=== PATIENT | female | born 1985 | race African-American/Black ===

== ENCOUNTER 2017-08-30 14:41 | Emergency (ER) | payer BC ==
[2017-08-30 19:57] LABS: ADD MAN DIFF? NO
[2017-08-30] MEDS: HYDROCODONE/APAP (10/325) TAB PO (19:57)
[2017-08-30 20:08] LABS: WHITE BLOOD COUNT 5.6 10^3/ul (4.8-10.8)
[2017-08-30 20:08] LABS: BASOPHILS % 0.4 % (0.0-2.0); EOSINOPHILS # 0.7 10^3/ul (0.0-0.5); EOSINOPHILS % 12.4 % (0.0-7.0); HEMATOCRIT 27.7 % (37.0-47.0); HEMOGLOBIN 8.8 g/dl (12.0-16.0); LYMPHOCYTES # 0.7 10^3/ul (0.8-2.9); LYMPHOCYTES % 13.3 % (15.0-51.0); MEAN CORPUSCULAR HGB CONC 31.8 g/dl (32.0-37.0); MEAN CORPUSCULAR VOLUME 97.5 fl (82.0-101.0); MONOCYTE # 0.8 10^3/ul (0.3-0.9); MONOCYTES % 14.4 % (0.0-11.0); NEUTROPHIL # 3.3 10^3/ul (1.6-7.5); PLATELET COUNT 126 10^3/UL (140-415); RED BLOOD COUNT 2.84 10^6/ul (4.20-5.40); RED CELL DISTRIBUTION WIDTH 15.5 % (11.5-14.5)
[2017-08-30 20:21] LABS: INR 0.99; PARTIAL THROMBOPLASTIN TIME 33.4 Sec (25.0-35.0); PROTIME 13.2 Sec (11.9-14.9)
[2017-08-30 20:25] LABS: ANION GAP 22 (8-16); BLOOD UREA NITROGEN 60 mg/dl (7-20); CALCIUM 9.1 mg/dl (8.4-10.2); CARBON DIOXIDE 23 mmol/L (21-31); CHLORIDE 103 mmol/L (97-110); CREATININE 9.69 mg/dl (0.44-1.00); GLUCOSE 97 mg/dl (70-220); SODIUM 143 mmol/L (135-144)
[2017-08-30] MEDS ORDERED: HYDROCODONE/APAP (10/325) TAB PO (20:30)
== END 2017-08-30 20:45 | disposition left against medical advice (07) ==
LOC: E/R 20:45
DX: N18.6 End stage renal disease (principal); I12.0 Hypertensive chronic kidney disease with stage 5 chronic kidney disease or end stage renal disease; I82.503 Chronic embolism and thrombosis of unspecified deep veins of lower extremity, bilateral; J45.909 Unspecified asthma, uncomplicated; I50.9 Heart failure, unspecified; Z76.5 Malingerer [conscious simulation]; Z87.891 Personal history of nicotine dependence; Z79.82 Long term (current) use of aspirin
CPT/HCPCS: 71045; 80048; 85025; 85610; 85730; 93005; 99285-25

== ENCOUNTER 2017-09-01 17:43 | Inpatient (IN) | payer BC ==
[2017-09-01 19:57] LABS: ADD MAN DIFF? NO
[2017-09-01 20:02] LABS: BASOPHILS % 0.4 % (0.0-2.0); EOSINOPHILS # 0.6 10^3/ul (0.0-0.5); EOSINOPHILS % 11.3 % (0.0-7.0); HEMATOCRIT 23.9 % (37.0-47.0); HEMOGLOBIN 7.6 g/dl (12.0-16.0); LYMPHOCYTES % 18.8 % (15.0-51.0); MEAN CORPUSCULAR HEMOGLOBIN 30.8 pg (29.0-33.0); MEAN CORPUSCULAR HGB CONC 31.8 g/dl (32.0-37.0); MEAN CORPUSCULAR VOLUME 96.8 fl (82.0-101.0); MEAN PLATELET VOLUME 10.6 fl (7.4-10.4); MONOCYTE # 0.7 10^3/ul (0.3-0.9); MONOCYTES % 12.8 % (0.0-11.0); NEUTROPHIL # 2.9 10^3/ul (1.6-7.5); NEUTROPHILS % 56.3 % (39.0-77.0); PLATELET COUNT 103 10^3/UL (140-415); RED BLOOD COUNT 2.47 10^6/ul (4.20-5.40); RED CELL DISTRIBUTION WIDTH 16.3 % (11.5-14.5)
[2017-09-01 20:02] LABS: WHITE BLOOD COUNT 5.2 10^3/ul (4.8-10.8)
[2017-09-01 20:16] LABS: INR 0.97
[2017-09-01 20:17] LABS: PARTIAL THROMBOPLASTIN TIME 42.3 Sec (25.0-35.0)
[2017-09-01 20:18] LABS: ALANINE AMINOTRANSFERASE 20 IU/L (13-69); ALBUMIN 3.7 g/dl (3.3-4.9); ALBUMIN/GLOBULIN RATIO 1.19; ALKALINE PHOSPHATASE 55 IU/L (42-121); ANION GAP 21 (8-16); ASPARTATE AMINO TRANSFERASE 17 IU/L (15-46); BLOOD UREA NITROGEN 73 mg/dl (7-20); CARBON DIOXIDE 22 mmol/L (21-31); CHLORIDE 105 mmol/L (97-110); GLUCOSE 101 mg/dl (70-220); LIPASE 74 U/L (23-300); POTASSIUM 5.5 mmol/L (3.5-5.1); SODIUM 142 mmol/L (135-144); TOTAL PROTEIN 6.8 g/dl (6.1-8.1)
[2017-09-01] MEDS: ENOXAPARIN 100 MG/ML SYG SC (21:52)
[2017-09-01] MEDS: ACETAMINOPHEN 325 MG TAB PO (21:52)
[2017-09-01] MEDS: ONDANSETRON 4 MG INJ IV (21:53)
[2017-09-01] MEDS: hydrALAzine 20 MG INJ IV (22:09)
[2017-09-01] MEDS: KETOROLAC 30 MG INJ IV (22:51)
[2017-09-01] MEDS: morphine 4 MG/ML VIAL IV (23:47)
[2017-09-02] MEDS ORDERED: ALBUTEROL/IPRATROPIUM (NEB) 3 ML AMP HHN (02:00)
[2017-09-02] MEDS ORDERED: NACL 0.9% 3 ML SYG IV (02:00)
[2017-09-02] MEDS ORDERED: TOPIRAMATE 200 MG PO (02:00)
[2017-09-02 03:40] LABS: CREATINE KINASE 88 IU/L (23-200)
[2017-09-02 03:53] LABS: CK INDEX 0.4; CK-MB 0.32 ng/ml (0.0-2.4)
[2017-09-02 04:15] LABS: TROPONIN-I < 0.012 ng/ml (0.00-0.12)
[2017-09-02] MEDS: NA POLYST SULFON 15 GM/60 ML BTL PO (06:49)
[2017-09-02] MEDS: ACETAMINOPHEN 325 MG TAB PO (06:50)
[2017-09-02] MEDS: morphine 2 MG INJ IV (07:37)
[2017-09-02 08:42] LABS: ADD MAN DIFF? NO
[2017-09-02 08:49] LABS: ABNORMAL IP MESSAGE 1; BASOPHILS % 0.4 % (0.0-2.0); EOSINOPHILS # 0.5 10^3/ul (0.0-0.5); EOSINOPHILS % 10.4 % (0.0-7.0); HEMATOCRIT 22.4 % (37.0-47.0); HEMOGLOBIN 7.1 g/dl (12.0-16.0); LYMPHOCYTES # 1.3 10^3/ul (0.8-2.9); LYMPHOCYTES % 28.4 % (15.0-51.0); MEAN CORPUSCULAR HGB CONC 31.7 g/dl (32.0-37.0); MEAN CORPUSCULAR VOLUME 97.8 fl (82.0-101.0); MEAN PLATELET VOLUME 11.1 fl (7.4-10.4); MONOCYTE # 0.5 10^3/ul (0.3-0.9); MONOCYTES % 11.3 % (0.0-11.0); NEUTROPHIL # 2.2 10^3/ul (1.6-7.5); NEUTROPHILS % 49.3 % (39.0-77.0); PLATELET COUNT 96 10^3/UL (140-415); RED BLOOD COUNT 2.29 10^6/ul (4.20-5.40); RED CELL DISTRIBUTION WIDTH 16.4 % (11.5-14.5)
[2017-09-02 08:49] LABS: WHITE BLOOD COUNT 4.5 10^3/ul (4.8-10.8)
[2017-09-02 08:51] LABS: POSITIVE DIFF @See below
[2017-09-02 09:17] LABS: CREATINE KINASE 79 IU/L (23-200)
[2017-09-02 09:18] LABS: ALANINE AMINOTRANSFERASE 20 IU/L (13-69); ALBUMIN 3.4 g/dl (3.3-4.9); ALBUMIN/GLOBULIN RATIO 1.21; ALKALINE PHOSPHATASE 67 IU/L (42-121); ANION GAP 21 (8-16); ASPARTATE AMINO TRANSFERASE 19 IU/L (15-46); BLOOD UREA NITROGEN 78 mg/dl (7-20); CALCIUM 7.8 mg/dl (8.4-10.2); CARBON DIOXIDE 19 mmol/L (21-31); CHLORIDE 108 mmol/L (97-110); CREATININE 10.93 mg/dl (0.44-1.00); GLUCOSE 83 mg/dl (70-220); MAGNESIUM 1.6 mg/dl (1.7-2.5); POTASSIUM 5.3 mmol/L (3.5-5.1); SODIUM 143 mmol/L (135-144); TOTAL PROTEIN 6.2 g/dl (6.1-8.1)
[2017-09-02 09:29] LABS: CK INDEX 0.4; CK-MB 0.31 ng/ml (0.0-2.4); TROPONIN-I 0.013 ng/ml (0.00-0.12)
[2017-09-02] MEDS: TOPIRAMATE 100 MG TAB PO ×2 (09:37→21:30)
[2017-09-02] MEDS: GABAPENTIN 100 MG CAP PO ×3 (09:37→20:03)
[2017-09-02] MEDS: CITALOPRAM 20 MG TAB PO (09:37)
[2017-09-02] MEDS: ASPIRIN (EC) 81 MG TAB PO (09:37)
[2017-09-02 11:07] LABS: IRON 33 ug/dl (35-150)
[2017-09-02 11:16] LABS: % IRON SATURATION 17 % SAT (22-52); TOTAL IRON BINDING CAPACITY 189 ug/dl (241-421)
[2017-09-02] MEDS ORDERED: HEPARIN 1000 UNITS/ML 10 ML INJ IV ×2 (13:00)
[2017-09-02 14:44] LABS: ADD MAN DIFF? NO
[2017-09-02 14:48] LABS: BASOPHILS % 0.3 % (0.0-2.0); EOSINOPHILS # 0.4 10^3/ul (0.0-0.5); HEMOGLOBIN 7.6 g/dl (12.0-16.0); LYMPHOCYTES # 0.8 10^3/ul (0.8-2.9); LYMPHOCYTES % 19.8 % (15.0-51.0); MEAN CORPUSCULAR HEMOGLOBIN 30.8 pg (29.0-33.0); MEAN CORPUSCULAR HGB CONC 31.7 g/dl (32.0-37.0); MEAN CORPUSCULAR VOLUME 97.2 fl (82.0-101.0); MEAN PLATELET VOLUME 10.6 fl (7.4-10.4); MONOCYTE # 0.5 10^3/ul (0.3-0.9); MONOCYTES % 11.3 % (0.0-11.0); NEUTROPHIL # 2.3 10^3/ul (1.6-7.5); NEUTROPHILS % 57.3 % (39.0-77.0); PLATELET COUNT 107 10^3/UL (140-415); RED BLOOD COUNT 2.47 10^6/ul (4.20-5.40); RED CELL DISTRIBUTION WIDTH 16.6 % (11.5-14.5)
[2017-09-02 15:03] LABS: INR 1.04; PROTIME 13.7 Sec (11.9-14.9); PT RATIO 1.1
[2017-09-02 15:04] LABS: PARTIAL THROMBOPLASTIN TIME 40.4 Sec (25.0-35.0)
[2017-09-02] MEDS: HEPARIN 1000 UNITS/ML 10 ML INJ IV (15:37)
[2017-09-02] MEDS: HEPARIN 25000 UNITS/250 ML 250 ML IV (15:38)
[2017-09-02] MEDS ORDERED: WARFARIN 5 MG TAB PO (17:00)
[2017-09-02] MEDS: LORAZEPAM 0.5 MG TAB PO ×2 (17:44→22:34)
[2017-09-02] MEDS: HYDROCODONE/APAP (5/325) TAB PO (22:34)
[2017-09-02 23:17] LABS: PARTIAL THROMBOPLASTIN TIME > 180.0 Sec (25.0-35.0)
[2017-09-03] MEDS: hydrALAzine 20 MG INJ IV ×4 (00:10→21:26)
[2017-09-03 02:22] LABS: PARTIAL THROMBOPLASTIN TIME 71.9 Sec (25.0-35.0)
[2017-09-03 07:39] LABS: ADD MAN DIFF? NO
[2017-09-03 07:51] LABS: WHITE BLOOD COUNT 5.1 10^3/ul (4.8-10.8)
[2017-09-03 07:51] LABS: ABNORMAL IP MESSAGE 1; BASOPHILS % 0.2 % (0.0-2.0); EOSINOPHILS # 0.6 10^3/ul (0.0-0.5); EOSINOPHILS % 11.8 % (0.0-7.0); HEMOGLOBIN 7.5 g/dl (12.0-16.0); LYMPHOCYTES # 1.1 10^3/ul (0.8-2.9); MEAN CORPUSCULAR HEMOGLOBIN 30.9 pg (29.0-33.0); MEAN CORPUSCULAR HGB CONC 32.6 g/dl (32.0-37.0); MEAN CORPUSCULAR VOLUME 94.7 fl (82.0-101.0); MEAN PLATELET VOLUME 11.7 fl (7.4-10.4); MONOCYTE # 0.4 10^3/ul (0.3-0.9); MONOCYTES % 8.7 % (0.0-11.0); NEUTROPHIL # 2.9 10^3/ul (1.6-7.5); NEUTROPHILS % 57.1 % (39.0-77.0); NUCLEATED RED BLOOD CELLS% 0.4 /100WBC (0.0-0.0); RED BLOOD COUNT 2.43 10^6/ul (4.20-5.40); RED CELL DISTRIBUTION WIDTH 16.7 % (11.5-14.5)
[2017-09-03 07:59] LABS: POSITIVE DIFF @See below
[2017-09-03 08:03] LABS: PLATELET COUNT 110 10^3/UL (140-415)
[2017-09-03] MEDS: CITALOPRAM 20 MG TAB PO (08:04)
[2017-09-03] MEDS: GABAPENTIN 100 MG CAP PO ×3 (08:04→20:04)
[2017-09-03] MEDS: ASPIRIN (EC) 81 MG TAB PO (08:04)
[2017-09-03] MEDS: TOPIRAMATE 100 MG TAB PO ×2 (08:04→20:03)
[2017-09-03 08:10] LABS: ANION GAP 20 (8-16); BLOOD UREA NITROGEN 83 mg/dl (7-20); CALCIUM 7.8 mg/dl (8.4-10.2); CARBON DIOXIDE 19 mmol/L (21-31); CHLORIDE 107 mmol/L (97-110); CREATININE 11.25 mg/dl (0.44-1.00); GLUCOSE 107 mg/dl (70-220); MAGNESIUM 1.6 mg/dl (1.7-2.5); PHOSPHORUS 6.4 mg/dl (2.5-4.9); POTASSIUM 4.5 mmol/L (3.5-5.1); SODIUM 141 mmol/L (135-144)
[2017-09-03] MEDS: HEPARIN 25000 UNITS/250 ML 250 ML IV (08:17)
[2017-09-03] MEDS: HYDROCODONE/APAP (5/325) TAB PO ×2 (08:38→13:44)
[2017-09-03 08:49] LABS: PARTIAL THROMBOPLASTIN TIME 85.9 Sec (25.0-35.0)
[2017-09-03 15:12] LABS: PARTIAL THROMBOPLASTIN TIME 176.7 Sec (25.0-35.0)
[2017-09-03] MEDS: LIDOCAINE 5% PATCH TD (19:27)
[2017-09-03 22:00] LABS: PARTIAL THROMBOPLASTIN TIME 98.3 Sec (25.0-35.0)
[2017-09-04] MEDS: HEPARIN 25000 UNITS/250 ML 250 ML IV ×2 (04:10→22:48)
[2017-09-04] MEDS: HYDROCODONE/APAP (5/325) TAB PO ×2 (05:13→21:47)
[2017-09-04 06:15] LABS: ADD MAN DIFF? NO
[2017-09-04 06:19] LABS: WHITE BLOOD COUNT 5.3 10^3/ul (4.8-10.8)
[2017-09-04 06:19] LABS: BASOPHILS % 0.4 % (0.0-2.0); EOSINOPHILS # 0.9 10^3/ul (0.0-0.5); EOSINOPHILS % 16.4 % (0.0-7.0); HEMATOCRIT 24.7 % (37.0-47.0); LYMPHOCYTES # 1.4 10^3/ul (0.8-2.9); LYMPHOCYTES % 26.4 % (15.0-51.0); MEAN CORPUSCULAR HGB CONC 32.4 g/dl (32.0-37.0); MEAN CORPUSCULAR VOLUME 95.7 fl (82.0-101.0); MEAN PLATELET VOLUME 10.8 fl (7.4-10.4); MONOCYTE # 0.5 10^3/ul (0.3-0.9); MONOCYTES % 9.4 % (0.0-11.0); NEUTROPHIL # 2.5 10^3/ul (1.6-7.5); NEUTROPHILS % 47.2 % (39.0-77.0); PLATELET COUNT 146 10^3/UL (140-415); RED BLOOD COUNT 2.58 10^6/ul (4.20-5.40); RED CELL DISTRIBUTION WIDTH 16.8 % (11.5-14.5)
[2017-09-04 06:56] LABS: ALANINE AMINOTRANSFERASE 20 IU/L (13-69); ALBUMIN/GLOBULIN RATIO 1.21; ALKALINE PHOSPHATASE 60 IU/L (42-121); ANION GAP 23 (8-16); ASPARTATE AMINO TRANSFERASE 16 IU/L (15-46); BLOOD UREA NITROGEN 76 mg/dl (7-20); CARBON DIOXIDE 21 mmol/L (21-31); CHLORIDE 106 mmol/L (97-110); CREATININE 11.18 mg/dl (0.44-1.00); GLUCOSE 98 mg/dl (70-220); POTASSIUM 4.6 mmol/L (3.5-5.1); SODIUM 145 mmol/L (135-144); TOTAL PROTEIN 7.3 g/dl (6.1-8.1)
[2017-09-04 07:23] LABS: PARTIAL THROMBOPLASTIN TIME 74.6 Sec (25.0-35.0)
[2017-09-04] MEDS: ASPIRIN (EC) 81 MG TAB PO (08:49)
[2017-09-04] MEDS: CITALOPRAM 20 MG TAB PO (08:49)
[2017-09-04] MEDS: TOPIRAMATE 100 MG TAB PO ×2 (08:50→20:03)
[2017-09-04] MEDS: GABAPENTIN 100 MG CAP PO ×3 (08:50→20:03)
[2017-09-04] MEDS: LIDOCAINE 5% PATCH TD (08:51)
[2017-09-04] MEDS: hydrALAzine 20 MG INJ IV ×2 (15:04→23:06)
[2017-09-04] MEDS: NITROGLYCERIN (SL) 0.4 MG TAB SL ×2 (18:50→19:26)
[2017-09-05] MEDS: ENALAPRILAT 1.25 MG INJ IV (01:25)
[2017-09-05 06:44] LABS: PARTIAL THROMBOPLASTIN TIME 81.8 Sec (25.0-35.0)
[2017-09-05] MEDS: TOPIRAMATE 100 MG TAB PO ×2 (08:51→20:26)
[2017-09-05] MEDS: CITALOPRAM 20 MG TAB PO (08:52)
[2017-09-05] MEDS: ASPIRIN (EC) 81 MG TAB PO (08:52)
[2017-09-05] MEDS: GABAPENTIN 100 MG CAP PO ×3 (08:52→20:26)
[2017-09-05] MEDS: LIDOCAINE 5% PATCH TD (08:53)
[2017-09-05] MEDS: hydrALAzine 20 MG INJ IV ×2 (15:01→20:27)
[2017-09-05] MEDS: HEPARIN 25000 UNITS/250 ML 250 ML IV (18:37)
[2017-09-06] MEDS: hydrALAzine 20 MG INJ IV (01:42)
[2017-09-06 06:36] LABS: ALANINE AMINOTRANSFERASE 18 IU/L (13-69); ALBUMIN 3.7 g/dl (3.3-4.9); ALBUMIN/GLOBULIN RATIO 1.05; ALKALINE PHOSPHATASE 46 IU/L (42-121); ANION GAP 17 (8-16); ASPARTATE AMINO TRANSFERASE 16 IU/L (15-46); BLOOD UREA NITROGEN 65 mg/dl (7-20); CALCIUM 8.8 mg/dl (8.4-10.2); CARBON DIOXIDE 24 mmol/L (21-31); CHLORIDE 104 mmol/L (97-110); CREATININE 11.29 mg/dl (0.44-1.00); GLUCOSE 91 mg/dl (70-220); POTASSIUM 4.3 mmol/L (3.5-5.1); SODIUM 141 mmol/L (135-144); TOTAL PROTEIN 7.2 g/dl (6.1-8.1)
[2017-09-06 06:58] LABS: PARTIAL THROMBOPLASTIN TIME 95.8 Sec (25.0-35.0)
[2017-09-06] MEDS: TOPIRAMATE 100 MG TAB PO (08:13)
[2017-09-06] MEDS: GABAPENTIN 100 MG CAP PO ×2 (08:13→12:34)
[2017-09-06] MEDS: CITALOPRAM 20 MG TAB PO (08:14)
[2017-09-06] MEDS: ASPIRIN (EC) 81 MG TAB PO (08:14)
[2017-09-06] MEDS: LIDOCAINE 5% PATCH TD (08:16)
[2017-09-06] MEDS ORDERED: NALOXONE (0.4 MG/ML) INJ IV (14:00)
[2017-09-06] MEDS: HEPARIN 25000 UNITS/250 ML 250 ML IV (16:40)
[2017-09-06] MEDS ORDERED: APIXABAN 5 MG TABLET PO (21:00)
== END 2017-09-06 19:15 | disposition left against medical advice (07) | DRG 314 ==
LOC: TEL 20:36 → MS2 09-03 16:30 → E/R 17:43
PROC: 06PYX3Z Removal of Infusion Device from Lower Vein, External Approach (ICD-10-PCS; principal; 2017-09-06)
DX: T82.868A Thrombosis due to vascular prosthetic devices, implants and grafts, initial encounter (principal); N18.6 End stage renal disease; I13.2 Hypertensive heart and chronic kidney disease with heart failure and with stage 5 chronic kidney disease, or end stage renal disease; I82.411 Acute embolism and thrombosis of right femoral vein; T82.41XA Breakdown (mechanical) of vascular dialysis catheter, initial encounter; E11.22 Type 2 diabetes mellitus with diabetic chronic kidney disease; I16.0 Hypertensive urgency; E87.5 Hyperkalemia; D63.1 Anemia in chronic kidney disease; Z91.14 Patient's other noncompliance with medication regimen; I50.9 Heart failure, unspecified; I73.9 Peripheral vascular disease, unspecified; E78.5 Hyperlipidemia, unspecified; Z79.01 Long term (current) use of anticoagulants; E66.9 Obesity, unspecified; Z68.38 Body mass index [BMI] 38.0-38.9, adult; Z79.82 Long term (current) use of aspirin; J45.909 Unspecified asthma, uncomplicated; Z82.49 Family history of ischemic heart disease and other diseases of the circulatory system; Z99.2 Dependence on renal dialysis; Z83.3 Family history of diabetes mellitus; E83.42 Hypomagnesemia; Z91.15 Patient's noncompliance with renal dialysis; Y84.8 Other medical procedures as the cause of abnormal reaction of the patient, or of later complication, without mention of misadventure at the time of the procedure
CPT/HCPCS: 36415; 80048; 80053; 82550; 82553; 82728; 83540; 83690; 83735; 83890; 84100; 84484; 85025; 85610; 85730; 88300; 90945; 93005; 93971; 96372; 96374; 96375; 97116; 97162; 97530; 99285-25

== ENCOUNTER 2017-11-28 23:04 | Inpatient (IN) | payer BC ==
[2017-11-29] MEDS: NITROGLYCERIN 50 MG/D5W (PMX) 250 ML IV (00:30)
[2017-11-29 00:45] LABS: ADD MAN DIFF? NO
[2017-11-29 00:59] LABS: ABNORMAL IP MESSAGE 1; BASOPHILS % 0.9 % (0.0-2.0); EOSINOPHILS # 0.4 10^3/ul (0.0-0.5); EOSINOPHILS % 8.7 % (0.0-7.0); HEMATOCRIT 25.5 % (37.0-47.0); HEMOGLOBIN 8.3 g/dl (12.0-16.0); LYMPHOCYTES # 0.9 10^3/ul (0.8-2.9); LYMPHOCYTES % 20.4 % (15.0-51.0); MEAN CORPUSCULAR HGB CONC 32.5 g/dl (32.0-37.0); MEAN CORPUSCULAR VOLUME 95.1 fl (82.0-101.0); MEAN PLATELET VOLUME 11.9 fl (7.4-10.4); MONOCYTE # 0.4 10^3/ul (0.3-0.9); MONOCYTES % 9.2 % (0.0-11.0); NEUTROPHIL # 2.6 10^3/ul (1.6-7.5); NEUTROPHILS % 60.6 % (39.0-77.0); RED BLOOD COUNT 2.68 10^6/ul (4.20-5.40); RED CELL DISTRIBUTION WIDTH 14.7 % (11.5-14.5)
[2017-11-29 00:59] LABS: WHITE BLOOD COUNT 4.3 10^3/ul (4.8-10.8)
[2017-11-29] MEDS: ONDANSETRON 4 MG INJ IV (01:01)
[2017-11-29] MEDS: morphine 4 MG/ML VIAL IV (01:02)
[2017-11-29 01:05] LABS: PROTIME 13.3 Sec (11.9-14.9)
[2017-11-29 01:06] LABS: PARTIAL THROMBOPLASTIN TIME 23.3 Sec (25.0-35.0)
[2017-11-29 01:16] LABS: ALANINE AMINOTRANSFERASE 26 IU/L (13-69); ALBUMIN/GLOBULIN RATIO 1.37; ALKALINE PHOSPHATASE 54 IU/L (42-121); ANION GAP 26 (8-16); ASPARTATE AMINO TRANSFERASE 33 IU/L (15-46); CARBON DIOXIDE 15 mmol/L (21-31); CHLORIDE 111 mmol/L (97-110); GLUCOSE 90 mg/dl (70-220); POTASSIUM 4.5 mmol/L (3.5-5.1); SODIUM 147 mmol/L (135-144); TOTAL PROTEIN 6.9 g/dl (6.1-8.1)
[2017-11-29 01:28] LABS: PLATELET COUNT 74 10^3/UL (140-415); POSITIVE DIFF @See below
[2017-11-29 01:33] LABS: BLOOD UREA NITROGEN 135 mg/dl (7-20); CREATININE 15.87 mg/dl (0.44-1.00)
[2017-11-29] MEDS: HYDROmorphONE 0.5 MG/0.5 ML SYG IV (02:01)
[2017-11-29] MEDS: niCARdipine-NS 0.1MG/ML DRIP 200 ML IV ×4 (02:14→07:56)
[2017-11-29] MEDS ORDERED: ONDANSETRON 4 MG INJ IV (03:00)
[2017-11-29] MEDS ORDERED: ACETAMINOPHEN 650MG/20.3ML CUP PO (03:00)
[2017-11-29 03:24] LABS: ETHANOL < 10.0 mg/dl
[2017-11-29] MEDS: DIPHENHYDRAMINE 50 MG INJ IV (04:22)
[2017-11-29] MEDS ORDERED: ACETAMINOPHEN 325 MG TAB PO (05:30)
[2017-11-29 05:32] LABS: ADD MAN DIFF? NO
[2017-11-29] MEDS: morphine 2 MG INJ IV (05:34)
[2017-11-29] MEDS: PANTOPRAZOLE (EC) 40 MG TAB PO (05:35)
[2017-11-29 05:43] LABS: BASOPHIL # 0.1 10^3/ul (0.0-0.1); BASOPHILS % 1.2 % (0.0-2.0); EOSINOPHILS # 0.6 10^3/ul (0.0-0.5); EOSINOPHILS % 10.3 % (0.0-7.0); HEMATOCRIT 24.9 % (37.0-47.0); HEMOGLOBIN 8.4 g/dl (12.0-16.0); LYMPHOCYTES # 1.4 10^3/ul (0.8-2.9); LYMPHOCYTES % 22.4 % (15.0-51.0); MEAN CORPUSCULAR HEMOGLOBIN 31.1 pg (29.0-33.0); MEAN CORPUSCULAR HGB CONC 33.7 g/dl (32.0-37.0); MEAN CORPUSCULAR VOLUME 92.2 fl (82.0-101.0); MEAN PLATELET VOLUME 11.4 fl (7.4-10.4); MONOCYTE # 0.7 10^3/ul (0.3-0.9); MONOCYTES % 11.5 % (0.0-11.0); NEUTROPHIL # 3.3 10^3/ul (1.6-7.5); NEUTROPHILS % 54.4 % (39.0-77.0); PLATELET COUNT 106 10^3/UL (140-415); RED CELL DISTRIBUTION WIDTH 14.6 % (11.5-14.5)
[2017-11-29 06:04] LABS: ANION GAP 23 (8-16); CARBON DIOXIDE 15 mmol/L (21-31); CHLORIDE 111 mmol/L (97-110); GLUCOSE 112 mg/dl (70-220); POTASSIUM 4.2 mmol/L (3.5-5.1); SODIUM 145 mmol/L (135-144)
[2017-11-29 06:14] LABS: BLOOD UREA NITROGEN 131 mg/dl (7-20); CREATININE 15.65 mg/dl (0.44-1.00)
[2017-11-29] MEDS ORDERED: APIXABAN 5 MG TABLET PO (09:00)
[2017-11-29] MEDS ORDERED: CITALOPRAM 20 MG TAB PO (09:00)
[2017-11-29] MEDS ORDERED: GABAPENTIN 100 MG CAP PO (09:00)
[2017-11-29] MEDS ORDERED: TOPIRAMATE 100 MG TAB PO (09:00)
[2017-11-29] MEDS ORDERED: ASPIRIN (EC) 81 MG TAB PO (09:00)
== END 2017-11-29 09:00 | disposition left against medical advice (07) | DRG 304 ==
LOC: ICU 11-29 02:36 → E/R 23:04
DX: I16.0 Hypertensive urgency (principal); N18.6 End stage renal disease; I12.0 Hypertensive chronic kidney disease with stage 5 chronic kidney disease or end stage renal disease; D63.1 Anemia in chronic kidney disease; Z99.2 Dependence on renal dialysis; Z91.15 Patient's noncompliance with renal dialysis; Z86.718 Personal history of other venous thrombosis and embolism; Z59.0 Homelessness
CPT/HCPCS: 71045; 80048; 80053; 80306; 84484; 85025; 85610; 85730; 87081; 93005; 93970; 96365; 96366; 96368; 96375; 99291-25

== ENCOUNTER 2018-01-16 08:09 | Inpatient (IN) | payer BC ==
[2018-01-16 09:39] LABS: ADD MAN DIFF? NO
[2018-01-16 09:43] LABS: WHITE BLOOD COUNT 5.2 10^3/ul (4.8-10.8)
[2018-01-16 09:43] LABS: ABNORMAL IP MESSAGE 1; BASOPHILS % 0.6 % (0.0-2.0); EOSINOPHILS # 0.2 10^3/ul (0.0-0.5); EOSINOPHILS % 4.1 % (0.0-7.0); HEMATOCRIT 24.8 % (37.0-47.0); HEMOGLOBIN 7.7 g/dl (12.0-16.0); LYMPHOCYTES # 0.6 10^3/ul (0.8-2.9); LYMPHOCYTES % 11.5 % (15.0-51.0); MEAN CORPUSCULAR HEMOGLOBIN 29.8 pg (29.0-33.0); MEAN CORPUSCULAR VOLUME 96.1 fl (82.0-101.0); MEAN PLATELET VOLUME 10.7 fl (7.4-10.4); MONOCYTE # 0.5 10^3/ul (0.3-0.9); MONOCYTES % 9.7 % (0.0-11.0); NEUTROPHIL # 3.8 10^3/ul (1.6-7.5); NEUTROPHILS % 73.7 % (39.0-77.0); PLATELET COUNT 148 10^3/UL (140-415); RED BLOOD COUNT 2.58 10^6/ul (4.20-5.40); RED CELL DISTRIBUTION WIDTH 15.5 % (11.5-14.5)
[2018-01-16 10:06] LABS: ALANINE AMINOTRANSFERASE 44 IU/L (13-69); ALBUMIN 3.1 g/dl (3.3-4.9); ALBUMIN/GLOBULIN RATIO 1.03; ALKALINE PHOSPHATASE 98 IU/L (42-121); ANION GAP 25 (8-16); ASPARTATE AMINO TRANSFERASE 74 IU/L (15-46); BLOOD UREA NITROGEN 113 mg/dl (7-20); CARBON DIOXIDE 17 mmol/L (21-31); CHLORIDE 110 mmol/L (97-110); GLUCOSE 74 mg/dl (70-220); LIPASE 98 U/L (23-300); POTASSIUM 4.7 mmol/L (3.5-5.1); SODIUM 147 mmol/L (135-144); TOTAL PROTEIN 6.1 g/dl (6.1-8.1)
[2018-01-16 10:08] LABS: CALCIUM 5.6 mg/dl (8.4-10.2)
[2018-01-16 10:16] LABS: CREATININE 16.16 mg/dl (0.44-1.00)
[2018-01-16] MEDS: CALCIUM GLUCONATE 10% 2 GM in DEXTROSE 5% 100 ML IVPB (11:57)
[2018-01-16] MEDS ORDERED: ACETAMINOPHEN 325 MG TAB PO ×2 (12:00→16:30)
[2018-01-16] MEDS ORDERED: ONDANSETRON 4 MG INJ IV ×2 (12:00→16:30)
[2018-01-16] MEDS: hydrALAzine 20 MG INJ IV ×2 (12:37→16:33)
[2018-01-16 13:13] LABS: ADD UMIC YES; UR ASCORBIC ACID NEGATIVE (NEGATIVE); UR BACTERIA FEW /HPF (NONE SEEN); UR BILIRUBIN (Dip) NEGATIVE (NEGATIVE); UR BLOOD (Dip) 1+ mg/dL (NEGATIVE); UR CLARITY CLEAR (CLEAR); UR COLOR COLORLESS (YELLOW); UR GLUCOSE (Dip) NEGATIVE (NEGATIVE); UR KETONES (Dip) NEGATIVE (NEGATIVE); UR LEUKOCYTE ESTERASE (Dip) NEGATIVE Leu/ul (NEGATIVE); UR NITRITE (Dip) NEGATIVE (NEGATIVE); UR RBC 0 /HPF (0-5); UR SPECIFIC GRAVITY (Dip) 1.003 (1.003-1.030); UR TOTAL PROTEIN (Dip) 1+ mg/dl (NEGATIVE); UR UROBILINOGEN (Dip) NEGATIVE (NEGATIVE); UR WBC 0 /HPF (0-5)
[2018-01-16 14:05] LABS: HEPATITIS B SURFACE ANTIGEN NEGATIVE (NEGATIVE)
[2018-01-16] MEDS ORDERED: NACL 0.9% 3 ML SYG IV (16:30)
[2018-01-16] MEDS ORDERED: BISACODYL 10 MG SUPP PR (16:30)
[2018-01-16] MEDS ORDERED: MAGNESIUM HYDROXIDE 30ML CUP PO (16:30)
[2018-01-16] MEDS ORDERED: DOCUSATE SODIUM 100 MG CAP PO (16:30)
[2018-01-16] MEDS ORDERED: ACETAMINOPHEN 650 MG SUPP PR (16:30)
[2018-01-16] MEDS: morphine 2 MG INJ IV (18:16)
[2018-01-16] MEDS ORDERED: IOHEXOL 14.3 MG(I)/ML (ADULT) BTL PO (22:00)
[2018-01-16] MEDS: TOPIRAMATE 100 MG TAB PO (22:28)
[2018-01-16] MEDS: APIXABAN 5 MG TABLET PO (22:29)
[2018-01-16] MEDS: HYDROCODONE/APAP (5/325) TAB PO (23:05)
[2018-01-16] MEDS: GABAPENTIN 100 MG CAP PO (23:05)
[2018-01-17] MEDS: morphine 2 MG INJ IV ×3 (01:32→14:50)
[2018-01-17] MEDS: PANTOPRAZOLE 40 MG INJ IV (06:32)
[2018-01-17] MEDS: TOPIRAMATE 100 MG TAB PO ×2 (08:44→21:14)
[2018-01-17] MEDS: ASPIRIN (EC) 81 MG TAB PO (08:44)
[2018-01-17] MEDS: GABAPENTIN 100 MG CAP PO ×3 (08:44→21:15)
[2018-01-17] MEDS: CITALOPRAM 20 MG TAB PO (08:45)
[2018-01-17] MEDS: APIXABAN 5 MG TABLET PO ×2 (08:45→21:16)
[2018-01-17 09:38] LABS: ADD MAN DIFF? NO
[2018-01-17 09:50] LABS: WHITE BLOOD COUNT 4.9 10^3/ul (4.8-10.8)
[2018-01-17 09:50] LABS: BASOPHILS % 0.4 % (0.0-2.0); EOSINOPHILS # 0.4 10^3/ul (0.0-0.5); EOSINOPHILS % 7.2 % (0.0-7.0); HEMATOCRIT 24.3 % (37.0-47.0); HEMOGLOBIN 7.8 g/dl (12.0-16.0); LYMPHOCYTES # 0.6 10^3/ul (0.8-2.9); LYMPHOCYTES % 12.7 % (15.0-51.0); MEAN CORPUSCULAR HEMOGLOBIN 30.6 pg (29.0-33.0); MEAN CORPUSCULAR HGB CONC 32.1 g/dl (32.0-37.0); MEAN CORPUSCULAR VOLUME 95.3 fl (82.0-101.0); MEAN PLATELET VOLUME 11.3 fl (7.4-10.4); MONOCYTE # 0.5 10^3/ul (0.3-0.9); MONOCYTES % 9.6 % (0.0-11.0); NEUTROPHIL # 3.4 10^3/ul (1.6-7.5); NEUTROPHILS % 69.5 % (39.0-77.0); PLATELET COUNT 170 10^3/UL (140-415); RED BLOOD COUNT 2.55 10^6/ul (4.20-5.40); RED CELL DISTRIBUTION WIDTH 15.1 % (11.5-14.5)
[2018-01-17 10:04] LABS: RETICULOCYTE COUNT # 0.048 X10^6 (0.020-0.110); RETICULOCYTE COUNT % 1.9 % (0.5-1.5)
[2018-01-17 10:06] LABS: IRON 70 ug/dl (35-150)
[2018-01-17 10:15] LABS: % IRON SATURATION 36 % SAT (22-52); ALANINE AMINOTRANSFERASE 37 IU/L (13-69); ALBUMIN 2.5 g/dl (3.3-4.9); ALBUMIN/GLOBULIN RATIO 0.96; ALKALINE PHOSPHATASE 64 IU/L (42-121); ANION GAP 17 (8-16); ASPARTATE AMINO TRANSFERASE 38 IU/L (15-46); BLOOD UREA NITROGEN 108 mg/dl (7-20); CALCIUM 6.1 mg/dl (8.4-10.2); CARBON DIOXIDE 22 mmol/L (21-31); CHLORIDE 109 mmol/L (97-110); CHOL/HDL RATIO 3.2 RATIO; CHOLESTEROL 119 mg/dl (100-200); GLUCOSE 95 mg/dl (70-220); HDL CHOLESTEROL 37 mg/dl (34-82); LDL CHOLESTEROL,CALCULATED 72 mg/dl; MAGNESIUM 1.7 mg/dl (1.7-2.5); PHOSPHORUS 8.8 mg/dl (2.5-4.9); POTASSIUM 4.3 mmol/L (3.5-5.1); SODIUM 144 mmol/L (135-144); TOTAL IRON BINDING CAPACITY 197 ug/dl (241-421); TOTAL PROTEIN 5.1 g/dl (6.1-8.1); TRIGLYCERIDES 49 mg/dl (0-149)
[2018-01-17 10:26] LABS: CREATININE 14.75 mg/dl (0.44-1.00)
[2018-01-17 10:29] LABS: FREE THYROXINE INDEX (Calc) 3.22 ug/ml (0.65-3.89); T3 UPTAKE 39.3 % (23.5-40.5); T4 (THYROXINE) 8.2 ug/dl (5.5-11.0)
[2018-01-17 11:05] LABS: HEMOGLOBIN A1C 5.4 % (0-5.9)
[2018-01-17 14:37] LABS: FLD PMN% 18.9 %; FLD RBC 0 /uL; FLD WBC 527 /cmm
[2018-01-17 15:21] LABS: FLD TYPE PERITONEAL
[2018-01-17 15:23] LABS: FLD CLARITY SLIGHTLY CLOUDY; FLD COLOR YELLOW; FLD MN% 81.1 %
[2018-01-17] MEDS: EPOETIN 4000 UNITS/1 ML INJ (ESRD) SC (17:39)
[2018-01-17] MEDS: morphine LIQ (10 MG/5 ML) CUP PO (18:57)
[2018-01-18] MEDS: HYDROCODONE/APAP (5/325) TAB PO ×2 (02:46→20:40)
[2018-01-18] MEDS: PANTOPRAZOLE 40 MG INJ IV (06:21)
[2018-01-18 06:55] LABS: ADD MAN DIFF? NO
[2018-01-18 07:01] LABS: BASOPHILS % 0.6 % (0.0-2.0); EOSINOPHILS # 0.4 10^3/ul (0.0-0.5); EOSINOPHILS % 7.3 % (0.0-7.0); HEMATOCRIT 25.8 % (37.0-47.0); HEMOGLOBIN 8.1 g/dl (12.0-16.0); LYMPHOCYTES # 0.8 10^3/ul (0.8-2.9); LYMPHOCYTES % 17.2 % (15.0-51.0); MEAN CORPUSCULAR HGB CONC 31.4 g/dl (32.0-37.0); MEAN CORPUSCULAR VOLUME 95.6 fl (82.0-101.0); MEAN PLATELET VOLUME 11.1 fl (7.4-10.4); MONOCYTE # 0.5 10^3/ul (0.3-0.9); MONOCYTES % 9.4 % (0.0-11.0); NEUTROPHIL # 3.1 10^3/ul (1.6-7.5); NEUTROPHILS % 65.1 % (39.0-77.0); PLATELET COUNT 175 10^3/UL (140-415); RED CELL DISTRIBUTION WIDTH 15.2 % (11.5-14.5)
[2018-01-18 07:01] LABS: WHITE BLOOD COUNT 4.8 10^3/ul (4.8-10.8)
[2018-01-18 07:34] LABS: ANION GAP 19 (8-16); BLOOD UREA NITROGEN 98 mg/dl (7-20); CARBON DIOXIDE 23 mmol/L (21-31); CHLORIDE 108 mmol/L (97-110); GLUCOSE 114 mg/dl (70-220); POTASSIUM 3.8 mmol/L (3.5-5.1); SODIUM 146 mmol/L (135-144)
[2018-01-18 07:53] LABS: CREATININE 13.64 mg/dl (0.44-1.00)
[2018-01-18 07:54] LABS: CALCIUM 5.7 mg/dl (8.4-10.2)
[2018-01-18] MEDS: TOPIRAMATE 100 MG TAB PO ×2 (08:52→20:30)
[2018-01-18] MEDS: ASPIRIN (EC) 81 MG TAB PO (08:52)
[2018-01-18] MEDS: CITALOPRAM 20 MG TAB PO (08:52)
[2018-01-18] MEDS: GABAPENTIN 100 MG CAP PO ×3 (08:52→20:30)
[2018-01-18] MEDS: APIXABAN 5 MG TABLET PO ×2 (08:52→20:30)
[2018-01-18] MEDS: hydrALAzine 20 MG INJ IV ×2 (09:06→18:46)
[2018-01-18] MEDS ORDERED: POTASSIUM PHOSPHATE 20 MEQ in SOD CHLORIDE 0.9% 250 ML IVPB (13:00)
[2018-01-18] MEDS: CALCIUM GLUCONATE 10% 2 GM in DEXTROSE 5% 100 ML IVPB (15:48)
[2018-01-18] MEDS: morphine LIQ (10 MG/5 ML) CUP PO (23:58)
[2018-01-19] MEDS: hydrALAzine 20 MG INJ IV (00:15)
[2018-01-19] MEDS: PANTOPRAZOLE 40 MG INJ IV (06:03)
[2018-01-19 06:34] LABS: ADD MAN DIFF? NO
[2018-01-19] MEDS: HYDROCODONE/APAP (5/325) TAB PO (06:37)
[2018-01-19 06:38] LABS: WHITE BLOOD COUNT 4.4 10^3/ul (4.8-10.8)
[2018-01-19 06:38] LABS: BASOPHILS % 0.5 % (0.0-2.0); EOSINOPHILS # 0.4 10^3/ul (0.0-0.5); HEMOGLOBIN 7.9 g/dl (12.0-16.0); LYMPHOCYTES # 0.8 10^3/ul (0.8-2.9); LYMPHOCYTES % 18.2 % (15.0-51.0); MEAN CORPUSCULAR HEMOGLOBIN 29.9 pg (29.0-33.0); MEAN CORPUSCULAR HGB CONC 31.6 g/dl (32.0-37.0); MEAN CORPUSCULAR VOLUME 94.7 fl (82.0-101.0); MEAN PLATELET VOLUME 10.4 fl (7.4-10.4); MONOCYTE # 0.6 10^3/ul (0.3-0.9); MONOCYTES % 12.9 % (0.0-11.0); NEUTROPHIL # 2.6 10^3/ul (1.6-7.5); NEUTROPHILS % 60.2 % (39.0-77.0); PLATELET COUNT 169 10^3/UL (140-415); RED BLOOD COUNT 2.64 10^6/ul (4.20-5.40); RED CELL DISTRIBUTION WIDTH 15.1 % (11.5-14.5)
[2018-01-19 07:19] LABS: ANION GAP 16 (8-16); BLOOD UREA NITROGEN 91 mg/dl (7-20); CARBON DIOXIDE 25 mmol/L (21-31); CHLORIDE 108 mmol/L (97-110); CREATININE 13.44 mg/dl (0.44-1.00); GLUCOSE 128 mg/dl (70-220); POTASSIUM 3.6 mmol/L (3.5-5.1); SODIUM 145 mmol/L (135-144)
[2018-01-19 07:24] LABS: CALCIUM 5.8 mg/dl (8.4-10.2)
[2018-01-19] MEDS: APIXABAN 5 MG TABLET PO ×2 (08:33→20:41)
[2018-01-19] MEDS: CITALOPRAM 20 MG TAB PO (08:33)
[2018-01-19] MEDS: ASPIRIN (EC) 81 MG TAB PO (08:33)
[2018-01-19] MEDS: TOPIRAMATE 100 MG TAB PO ×2 (08:33→20:40)
[2018-01-19] MEDS: GABAPENTIN 100 MG CAP PO ×3 (08:33→20:40)
[2018-01-19] MEDS: CALCIUM GLUCONATE 10% 2 GM in DEXTROSE 5% 100 ML IVPB (12:56)
[2018-01-19] MEDS: IODIXANOL LOCM 100 ML BTL (17:41)
[2018-01-19] MEDS: SOD CHLORIDE 0.9% 100 ML (17:42)
[2018-01-20] MEDS: morphine LIQ (10 MG/5 ML) CUP PO (02:07)
[2018-01-20] MEDS: PANTOPRAZOLE 40 MG INJ IV (06:30)
[2018-01-20 06:57] LABS: ADD MAN DIFF? NO
[2018-01-20 07:05] LABS: WHITE BLOOD COUNT 4.9 10^3/ul (4.8-10.8)
[2018-01-20 07:05] LABS: BASOPHILS % 0.6 % (0.0-2.0); EOSINOPHILS # 0.4 10^3/ul (0.0-0.5); EOSINOPHILS % 7.6 % (0.0-7.0); HEMATOCRIT 24.5 % (37.0-47.0); HEMOGLOBIN 7.7 g/dl (12.0-16.0); LYMPHOCYTES # 0.9 10^3/ul (0.8-2.9); LYMPHOCYTES % 17.5 % (15.0-51.0); MEAN CORPUSCULAR HEMOGLOBIN 30.3 pg (29.0-33.0); MEAN CORPUSCULAR HGB CONC 31.4 g/dl (32.0-37.0); MEAN CORPUSCULAR VOLUME 96.5 fl (82.0-101.0); MEAN PLATELET VOLUME 11.4 fl (7.4-10.4); MONOCYTE # 0.6 10^3/ul (0.3-0.9); MONOCYTES % 11.9 % (0.0-11.0); NEUTROPHILS % 62.2 % (39.0-77.0); PLATELET COUNT 148 10^3/UL (140-415); RED BLOOD COUNT 2.54 10^6/ul (4.20-5.40); RED CELL DISTRIBUTION WIDTH 15.1 % (11.5-14.5)
[2018-01-20 07:50] LABS: ANION GAP 17 (8-16); BLOOD UREA NITROGEN 82 mg/dl (7-20); CARBON DIOXIDE 25 mmol/L (21-31); CHLORIDE 106 mmol/L (97-110); CREATININE 12.54 mg/dl (0.44-1.00); GLUCOSE 100 mg/dl (70-220); POTASSIUM 3.5 mmol/L (3.5-5.1); SODIUM 144 mmol/L (135-144)
[2018-01-20 07:52] LABS: CALCIUM 5.8 mg/dl (8.4-10.2)
[2018-01-20] MEDS: ASPIRIN (EC) 81 MG TAB PO (09:20)
[2018-01-20] MEDS: APIXABAN 5 MG TABLET PO (09:20)
[2018-01-20] MEDS: TOPIRAMATE 100 MG TAB PO (09:21)
[2018-01-20] MEDS: CITALOPRAM 20 MG TAB PO (09:21)
[2018-01-20] MEDS: GABAPENTIN 100 MG CAP PO (09:21)
[2018-01-20] MEDS ORDERED: CALCIUM GLUCONATE 10% 2 GM in DEXTROSE 5% 100 ML IVPB (12:30)
[2018-01-21 19:57] LABS: PTH CALCIUM 5.9 mg/dL (8.6-10.2)
[2018-01-22 08:57] LABS: PTH INTACT 874 pg/mL (14-64)
== END 2018-01-20 12:00 | disposition left against medical advice (07) | DRG 640 ==
LOC: E/R 08:09 → TEL 11:48
PROC: 3E1M39Z Irrigation of Peritoneal Cavity using Dialysate, Percutaneous Approach (ICD-10-PCS; principal; 2018-01-16)
DX: E83.51 Hypocalcemia (principal); N18.6 End stage renal disease; I13.2 Hypertensive heart and chronic kidney disease with heart failure and with stage 5 chronic kidney disease, or end stage renal disease; D63.1 Anemia in chronic kidney disease; E78.00 Pure hypercholesterolemia, unspecified; K59.00 Constipation, unspecified; R10.9 Unspecified abdominal pain; E11.22 Type 2 diabetes mellitus with diabetic chronic kidney disease; I50.9 Heart failure, unspecified; G51.0 Bell's palsy; J45.909 Unspecified asthma, uncomplicated; F17.210 Nicotine dependence, cigarettes, uncomplicated; Z86.718 Personal history of other venous thrombosis and embolism; Z99.2 Dependence on renal dialysis; Z91.19 Patient's noncompliance with other medical treatment and regimen; Z91.15 Patient's noncompliance with renal dialysis; Z79.82 Long term (current) use of aspirin
CPT/HCPCS: 36415; 74178; 80048; 80053; 80061; 81001; 82306; 82607; 82728; 82746; 83036; 83540; 83690; 83735; 83970; 84100; 84436; 84443; 84479; 85025; 85045; 86850; 86900; 86901; 87040; 87070; 87102; 87116; 87340; 89051; 90945; 93005; 96374; 96375; 99285-25

== ENCOUNTER 2018-01-26 05:25 | Inpatient (IN) | payer BC ==
[2018-01-26] MEDS: morphine 4 MG/ML VIAL IV (07:13)
[2018-01-26] MEDS: ONDANSETRON 4 MG INJ IV (07:13)
[2018-01-26 07:19] LABS: ADD MAN DIFF? NO
[2018-01-26 07:22] LABS: WHITE BLOOD COUNT 4.9 10^3/ul (4.8-10.8)
[2018-01-26 07:22] LABS: ABNORMAL IP MESSAGE 1; BASOPHILS % 0.6 % (0.0-2.0); EOSINOPHILS # 0.4 10^3/ul (0.0-0.5); EOSINOPHILS % 7.4 % (0.0-7.0); HEMATOCRIT 25.7 % (37.0-47.0); LYMPHOCYTES # 0.6 10^3/ul (0.8-2.9); LYMPHOCYTES % 11.9 % (15.0-51.0); MEAN CORPUSCULAR HEMOGLOBIN 30.1 pg (29.0-33.0); MEAN CORPUSCULAR HGB CONC 31.1 g/dl (32.0-37.0); MEAN CORPUSCULAR VOLUME 96.6 fl (82.0-101.0); MEAN PLATELET VOLUME 11.4 fl (7.4-10.4); MONOCYTE # 0.5 10^3/ul (0.3-0.9); MONOCYTES % 9.6 % (0.0-11.0); NEUTROPHIL # 3.4 10^3/ul (1.6-7.5); NEUTROPHILS % 70.1 % (39.0-77.0); PLATELET COUNT 126 10^3/UL (140-415); RED BLOOD COUNT 2.66 10^6/ul (4.20-5.40); RED CELL DISTRIBUTION WIDTH 15.4 % (11.5-14.5)
[2018-01-26 07:34] LABS: POSITIVE DIFF @See below
[2018-01-26 07:46] LABS: ALANINE AMINOTRANSFERASE 61 IU/L (13-69); ALBUMIN 3.3 g/dl (3.3-4.9); ALBUMIN/GLOBULIN RATIO 1.13; ALKALINE PHOSPHATASE 116 IU/L (42-121); ANION GAP 22 (8-16); ASPARTATE AMINO TRANSFERASE 108 IU/L (15-46); BLOOD UREA NITROGEN 106 mg/dl (7-20); CARBON DIOXIDE 21 mmol/L (21-31); CHLORIDE 109 mmol/L (97-110); GLUCOSE 76 mg/dl (70-220); LIPASE 43 U/L (23-300); POTASSIUM 4.5 mmol/L (3.5-5.1); SODIUM 147 mmol/L (135-144); TOTAL PROTEIN 6.2 g/dl (6.1-8.1)
[2018-01-26 07:49] LABS: CALCIUM 5.6 mg/dl (8.4-10.2)
[2018-01-26 07:59] LABS: CREATININE 16.23 mg/dl (0.44-1.00)
[2018-01-26] MEDS: CALCIUM GLUCONATE 10% 1 GM in DEXTROSE 5% 100 ML IVPB (08:16)
[2018-01-26] MEDS ORDERED: ACETAMINOPHEN 325 MG TAB PO ×2 (08:30→09:00)
[2018-01-26] MEDS ORDERED: ONDANSETRON 4 MG INJ IV ×2 (08:30→09:00)
[2018-01-26] MEDS ORDERED: BISACODYL (EC) 5 MG TAB PO (09:00)
[2018-01-26] MEDS ORDERED: ONDANSETRON 4 MG TAB PO (09:00)
[2018-01-26] MEDS ORDERED: DOCUSATE SODIUM 100 MG CAP PO (09:00)
[2018-01-26] MEDS ORDERED: NACL 0.9% 3 ML SYG IV (09:00)
[2018-01-26] MEDS ORDERED: MAGNESIUM HYDROXIDE 30ML CUP PO (09:00)
[2018-01-26] MEDS ORDERED: ENOXAPARIN 40 MG/0.4 ML SYG SC (09:00)
[2018-01-26] MEDS: ASPIRIN (EC) 81 MG TAB PO (09:14)
[2018-01-26] MEDS: APIXABAN 5 MG TABLET PO ×2 (09:15→21:05)
[2018-01-26] MEDS: CALCIUM CARBONATE 1.25 GM TAB PO ×3 (09:15→21:05)
[2018-01-26] MEDS: hydrALAzine 20 MG INJ IV ×2 (09:35→22:54)
[2018-01-26] MEDS: morphine 2 MG INJ IV (21:02)
[2018-01-27] MEDS: morphine 2 MG INJ IV ×2 (00:37→08:21)
[2018-01-27] MEDS: CALCIUM CARBONATE 1.25 GM TAB PO ×3 (08:19→22:13)
[2018-01-27] MEDS: ASPIRIN (EC) 81 MG TAB PO (08:21)
[2018-01-27] MEDS: APIXABAN 5 MG TABLET PO ×2 (08:21→22:13)
[2018-01-27 08:37] LABS: ADD MAN DIFF? NO
[2018-01-27 08:49] LABS: WHITE BLOOD COUNT 4.2 10^3/ul (4.8-10.8)
[2018-01-27 08:49] LABS: BASOPHILS % 0.7 % (0.0-2.0); EOSINOPHILS # 0.5 10^3/ul (0.0-0.5); EOSINOPHILS % 12.8 % (0.0-7.0); HEMATOCRIT 24.1 % (37.0-47.0); HEMOGLOBIN 7.6 g/dl (12.0-16.0); LYMPHOCYTES # 0.7 10^3/ul (0.8-2.9); LYMPHOCYTES % 16.1 % (15.0-51.0); MEAN CORPUSCULAR HEMOGLOBIN 30.4 pg (29.0-33.0); MEAN CORPUSCULAR HGB CONC 31.5 g/dl (32.0-37.0); MEAN CORPUSCULAR VOLUME 96.4 fl (82.0-101.0); MEAN PLATELET VOLUME 11.2 fl (7.4-10.4); MONOCYTE # 0.6 10^3/ul (0.3-0.9); MONOCYTES % 13.9 % (0.0-11.0); NEUTROPHIL # 2.4 10^3/ul (1.6-7.5); NEUTROPHILS % 56.3 % (39.0-77.0); PLATELET COUNT 160 10^3/UL (140-415); RED CELL DISTRIBUTION WIDTH 15.2 % (11.5-14.5)
[2018-01-27 09:19] LABS: ANION GAP 19 (8-16); BLOOD UREA NITROGEN 100 mg/dl (7-20); CARBON DIOXIDE 23 mmol/L (21-31); CHLORIDE 107 mmol/L (97-110); GLUCOSE 122 mg/dl (70-220); MAGNESIUM 1.5 mg/dl (1.7-2.5); POTASSIUM 3.9 mmol/L (3.5-5.1); SODIUM 145 mmol/L (135-144)
[2018-01-27 09:21] LABS: CALCIUM 5.9 mg/dl (8.4-10.2)
[2018-01-27 09:43] LABS: CREATININE 14.54 mg/dl (0.44-1.00)
[2018-01-27] MEDS: DIPHENHYDRAMINE 50 MG INJ IV ×2 (11:21→18:07)
[2018-01-27 13:14] LABS: HEPATITIS B SURFACE ANTIGEN NEGATIVE (NEGATIVE)
[2018-01-27] MEDS: SOD CHLORIDE 0.9% 250 ML IV* (14:27)
[2018-01-27] MEDS: MAGNESIUM SULFATE 2 GM/50 ML 50 ML IVPB (15:13)
[2018-01-27 17:28] LABS: AHG CROSSMATCH 1 1
[2018-01-27] MEDS: hydrALAzine 20 MG INJ IV (18:07)
[2018-01-28] MEDS: CALCITRIOL 0.25 MCG CAP PO ×2 (03:33→08:47)
[2018-01-28] MEDS: traMADol 50 MG TAB PO ×2 (03:34→22:08)
[2018-01-28 07:52] LABS: ADD MAN DIFF? NO
[2018-01-28 08:00] LABS: WHITE BLOOD COUNT 4.5 10^3/ul (4.8-10.8)
[2018-01-28 08:00] LABS: BASOPHILS % 0.4 % (0.0-2.0); EOSINOPHILS # 0.5 10^3/ul (0.0-0.5); HEMATOCRIT 28.9 % (37.0-47.0); HEMOGLOBIN 9.1 g/dl (12.0-16.0); LYMPHOCYTES # 0.7 10^3/ul (0.8-2.9); LYMPHOCYTES % 15.4 % (15.0-51.0); MEAN CORPUSCULAR HEMOGLOBIN 29.9 pg (29.0-33.0); MEAN CORPUSCULAR HGB CONC 31.5 g/dl (32.0-37.0); MEAN CORPUSCULAR VOLUME 95.1 fl (82.0-101.0); MEAN PLATELET VOLUME 11.2 fl (7.4-10.4); MONOCYTE # 0.6 10^3/ul (0.3-0.9); MONOCYTES % 13.4 % (0.0-11.0); NEUTROPHIL # 2.7 10^3/ul (1.6-7.5); NEUTROPHILS % 59.6 % (39.0-77.0); PLATELET COUNT 162 10^3/UL (140-415); RED BLOOD COUNT 3.04 10^6/ul (4.20-5.40); RED CELL DISTRIBUTION WIDTH 15.7 % (11.5-14.5)
[2018-01-28] MEDS: DIPHENHYDRAMINE 50 MG INJ IV ×2 (08:46→16:52)
[2018-01-28] MEDS: APIXABAN 5 MG TABLET PO ×2 (08:47→21:00)
[2018-01-28] MEDS: hydrALAzine 20 MG INJ IV (08:47)
[2018-01-28] MEDS: ASPIRIN (EC) 81 MG TAB PO (08:48)
[2018-01-28] MEDS: CALCIUM CARBONATE 1.25 GM TAB PO ×3 (08:48→22:07)
[2018-01-28 09:01] LABS: ANION GAP 20 (8-16); BLOOD UREA NITROGEN 93 mg/dl (7-20); CALCIUM 6.3 mg/dl (8.4-10.2); CARBON DIOXIDE 23 mmol/L (21-31); CHLORIDE 107 mmol/L (97-110); GLUCOSE 118 mg/dl (70-220); POTASSIUM 3.8 mmol/L (3.5-5.1); SODIUM 146 mmol/L (135-144)
[2018-01-28 09:04] LABS: CREATININE 13.85 mg/dl (0.44-1.00)
[2018-01-28] MEDS: SEVELAMER CARBONATE 0.8 GM PKT PO ×2 (13:15→18:53)
[2018-01-28 20:27] LABS: PTH CALCIUM 5.7 mg/dL (8.6-10.2)
[2018-01-29] MEDS: hydrALAzine 20 MG INJ IM (00:02)
[2018-01-29] MEDS: DIPHENHYDRAMINE 50 MG INJ IV ×2 (05:27→13:28)
[2018-01-29] MEDS: hydrALAzine 20 MG INJ IV ×3 (05:27→20:45)
[2018-01-29 08:16] LABS: ADD MAN DIFF? NO
[2018-01-29 08:25] LABS: BASOPHILS % 0.6 % (0.0-2.0); EOSINOPHILS # 0.6 10^3/ul (0.0-0.5); EOSINOPHILS % 11.4 % (0.0-7.0); HEMATOCRIT 27.1 % (37.0-47.0); HEMOGLOBIN 8.6 g/dl (12.0-16.0); LYMPHOCYTES # 0.9 10^3/ul (0.8-2.9); LYMPHOCYTES % 18.4 % (15.0-51.0); MEAN CORPUSCULAR HEMOGLOBIN 30.3 pg (29.0-33.0); MEAN CORPUSCULAR HGB CONC 31.7 g/dl (32.0-37.0); MEAN CORPUSCULAR VOLUME 95.4 fl (82.0-101.0); MEAN PLATELET VOLUME 11.2 fl (7.4-10.4); MONOCYTE # 0.6 10^3/ul (0.3-0.9); MONOCYTES % 13.2 % (0.0-11.0); NEUTROPHIL # 2.7 10^3/ul (1.6-7.5); NEUTROPHILS % 56.2 % (39.0-77.0); PLATELET COUNT 160 10^3/UL (140-415); RED BLOOD COUNT 2.84 10^6/ul (4.20-5.40); RED CELL DISTRIBUTION WIDTH 15.6 % (11.5-14.5)
[2018-01-29 08:25] LABS: WHITE BLOOD COUNT 4.8 10^3/ul (4.8-10.8)
[2018-01-29 08:42] LABS: MAGNESIUM 1.5 mg/dl (1.7-2.5)
[2018-01-29 08:42] LABS: PHOSPHORUS 6.7 mg/dl (2.5-4.9)
[2018-01-29 08:44] LABS: ANION GAP 18 (8-16); BLOOD UREA NITROGEN 86 mg/dl (7-20); CALCIUM 6.6 mg/dl (8.4-10.2); CARBON DIOXIDE 25 mmol/L (21-31); CHLORIDE 105 mmol/L (97-110); GLUCOSE 107 mg/dl (70-220); POTASSIUM 3.7 mmol/L (3.5-5.1); SODIUM 144 mmol/L (135-144)
[2018-01-29] MEDS: CALCIUM CARBONATE 1.25 GM TAB PO ×2 (09:32→12:52)
[2018-01-29] MEDS: ASPIRIN (EC) 81 MG TAB PO (09:32)
[2018-01-29] MEDS: APIXABAN 5 MG TABLET PO ×2 (09:32→20:45)
[2018-01-29] MEDS: CALCITRIOL 0.25 MCG CAP PO (09:32)
[2018-01-29] MEDS: SEVELAMER CARBONATE 0.8 GM PKT PO ×3 (09:33→17:13)
[2018-01-29 10:22] LABS: PTH INTACT 974 pg/mL (14-64)
[2018-01-29] MEDS: MAGNESIUM SULFATE 2 GM/50 ML 50 ML IVPB (15:35)
[2018-01-30] MEDS: hydrALAzine 20 MG INJ IV ×2 (01:04→12:01)
[2018-01-30] MEDS: DIPHENHYDRAMINE 50 MG INJ IV ×4 (01:04→20:03)
[2018-01-30] MEDS: GABAPENTIN 300 MG CAP PO ×4 (05:00→20:00)
[2018-01-30 08:27] LABS: ADD MAN DIFF? NO
[2018-01-30 08:31] LABS: WHITE BLOOD COUNT 4.7 10^3/ul (4.8-10.8)
[2018-01-30 08:31] LABS: BASOPHILS % 0.8 % (0.0-2.0); EOSINOPHILS # 0.7 10^3/ul (0.0-0.5); EOSINOPHILS % 13.7 % (0.0-7.0); HEMATOCRIT 27.5 % (37.0-47.0); HEMOGLOBIN 8.5 g/dl (12.0-16.0); LYMPHOCYTES # 0.7 10^3/ul (0.8-2.9); LYMPHOCYTES % 14.8 % (15.0-51.0); MEAN CORPUSCULAR HEMOGLOBIN 30.2 pg (29.0-33.0); MEAN CORPUSCULAR HGB CONC 30.9 g/dl (32.0-37.0); MEAN CORPUSCULAR VOLUME 97.9 fl (82.0-101.0); MONOCYTE # 0.7 10^3/ul (0.3-0.9); MONOCYTES % 14.6 % (0.0-11.0); NEUTROPHIL # 2.6 10^3/ul (1.6-7.5); NEUTROPHILS % 55.9 % (39.0-77.0); PLATELET COUNT 150 10^3/UL (140-415); RED BLOOD COUNT 2.81 10^6/ul (4.20-5.40); RED CELL DISTRIBUTION WIDTH 15.2 % (11.5-14.5)
[2018-01-30 08:51] LABS: ANION GAP 17 (8-16); BLOOD UREA NITROGEN 77 mg/dl (7-20); CARBON DIOXIDE 27 mmol/L (21-31); CHLORIDE 105 mmol/L (97-110); CREATININE 12.72 mg/dl (0.44-1.00); GLUCOSE 98 mg/dl (70-220); POTASSIUM 3.6 mmol/L (3.5-5.1); SODIUM 145 mmol/L (135-144)
[2018-01-30] MEDS: CALCITRIOL 0.25 MCG CAP PO (09:31)
[2018-01-30] MEDS: APIXABAN 5 MG TABLET PO ×2 (09:31→20:14)
[2018-01-30] MEDS: SEVELAMER CARBONATE 0.8 GM PKT PO ×3 (09:31→18:04)
[2018-01-30] MEDS: ASPIRIN (EC) 81 MG TAB PO (09:32)
[2018-01-30] MEDS: ACETAMINOPHEN 1000MG/100ML IV 100 ML IVPB ×2 (12:03→20:59)
[2018-01-30] MEDS: METOCLOPRAMIDE 10 MG INJ IV (20:03)
[2018-01-30] MEDS: KETOROLAC 15 MG INJ IV (20:58)
[2018-01-31] MEDS: DIPHENHYDRAMINE 50 MG INJ IV ×2 (03:16→17:09)
[2018-01-31 07:26] LABS: ADD MAN DIFF? NO
[2018-01-31 07:28] LABS: BASOPHILS % 0.8 % (0.0-2.0); EOSINOPHILS # 0.6 10^3/ul (0.0-0.5); EOSINOPHILS % 11.3 % (0.0-7.0); HEMATOCRIT 28.2 % (37.0-47.0); HEMOGLOBIN 8.8 g/dl (12.0-16.0); LYMPHOCYTES # 0.9 10^3/ul (0.8-2.9); LYMPHOCYTES % 17.3 % (15.0-51.0); MEAN CORPUSCULAR HEMOGLOBIN 30.6 pg (29.0-33.0); MEAN CORPUSCULAR HGB CONC 31.2 g/dl (32.0-37.0); MEAN CORPUSCULAR VOLUME 97.9 fl (82.0-101.0); MEAN PLATELET VOLUME 11.1 fl (7.4-10.4); MONOCYTE # 0.7 10^3/ul (0.3-0.9); MONOCYTES % 14.1 % (0.0-11.0); NEUTROPHIL # 2.8 10^3/ul (1.6-7.5); NEUTROPHILS % 56.1 % (39.0-77.0); PLATELET COUNT 163 10^3/UL (140-415); RED BLOOD COUNT 2.88 10^6/ul (4.20-5.40)
[2018-01-31 07:53] LABS: ANION GAP 14 (8-16); BLOOD UREA NITROGEN 75 mg/dl (7-20); CALCIUM 7.5 mg/dl (8.4-10.2); CARBON DIOXIDE 29 mmol/L (21-31); CHLORIDE 106 mmol/L (97-110); CREATININE 12.22 mg/dl (0.44-1.00); GLUCOSE 104 mg/dl (70-220); POTASSIUM 3.7 mmol/L (3.5-5.1); SODIUM 145 mmol/L (135-144)
[2018-01-31] MEDS: SEVELAMER CARBONATE 800 MG TABLET PO ×3 (08:00→17:09)
[2018-01-31 08:03] LABS: MAGNESIUM 1.9 mg/dl (1.7-2.5)
[2018-01-31 08:03] LABS: PHOSPHORUS 5.1 mg/dl (2.5-4.9)
[2018-01-31] MEDS: traMADol 50 MG TAB PO (09:11)
[2018-01-31] MEDS: GABAPENTIN 300 MG CAP PO ×2 (09:11→12:59)
[2018-01-31] MEDS: CALCITRIOL 0.25 MCG CAP PO (09:12)
[2018-01-31] MEDS: ASPIRIN (EC) 81 MG TAB PO (09:12)
[2018-01-31] MEDS: APIXABAN 5 MG TABLET PO (09:13)
[2018-01-31] MEDS: ACETAMINOPHEN 1000MG/100ML IV 100 ML IVPB (09:15)
[2018-01-31] MEDS: KETOROLAC 15 MG INJ IV ×2 (13:00→13:01)
[2018-01-31] MEDS: hydrALAzine 20 MG INJ IV (17:09)
== END 2018-01-31 17:50 | disposition left against medical advice (07) | DRG 682 ==
LOC: E/R 05:25 → MS4 08:22
PROC: 3E1M39Z Irrigation of Peritoneal Cavity using Dialysate, Percutaneous Approach (ICD-10-PCS; principal; 2018-01-26)
PROC: 30233N1 Transfusion of Nonautologous Red Blood Cells into Peripheral Vein, Percutaneous Approach (ICD-10-PCS; 2018-01-27)
DX: I12.0 Hypertensive chronic kidney disease with stage 5 chronic kidney disease or end stage renal disease (principal); N18.6 End stage renal disease; E83.51 Hypocalcemia; E78.5 Hyperlipidemia, unspecified; E87.70 Fluid overload, unspecified; F41.9 Anxiety disorder, unspecified; I16.0 Hypertensive urgency; R60.0 Localized edema; Z99.2 Dependence on renal dialysis; Z86.718 Personal history of other venous thrombosis and embolism; Z91.15 Patient's noncompliance with renal dialysis; Z91.14 Patient's other noncompliance with medication regimen; Z59.9 Problem related to housing and economic circumstances, unspecified; Z79.02 Long term (current) use of antithrombotics/antiplatelets
CPT/HCPCS: 36415; 36430; 80048; 80053; 80307; 83690; 83735; 83970; 84100; 84703; 85025; 86850; 86900; 86901; 86920; 87340; 90945; 93005; 93970; 96374; 96375; 99291-25

== ENCOUNTER 2018-02-03 22:54 | Inpatient (IN) | payer BC ==
[2018-02-04] MEDS ORDERED: MECLIZINE 12.5 MG TAB (02:35)
[2018-02-04] MEDS ORDERED: hydrALAzine 20 MG INJ (02:59)
[2018-02-04 03:53] LABS: ADD MAN DIFF? NO
[2018-02-04 04:00] LABS: ALANINE AMINOTRANSFERASE 46 IU/L (13-69); ALBUMIN 3.4 g/dl (3.3-4.9); ALBUMIN/GLOBULIN RATIO 1.03; ALKALINE PHOSPHATASE 128 IU/L (42-121); ANION GAP 18 (8-16); ASPARTATE AMINO TRANSFERASE 75 IU/L (15-46); B-TYPE NATRIURETIC PEPTIDE 31700 PG/ML (0-125); BILIRUBIN,INDIRECT 0.1 mg/dl (0-1.1); BILIRUBIN,TOTAL 0.1 mg/dl (0.2-1.3); BLOOD UREA NITROGEN 95 mg/dl (7-20); CALCIUM 7.6 mg/dl (8.4-10.2); CARBON DIOXIDE 26 mmol/L (21-31); CHLORIDE 106 mmol/L (97-110); GLUCOSE 102 mg/dl (70-220); POTASSIUM 4.6 mmol/L (3.5-5.1); SODIUM 145 mmol/L (135-144); TOTAL PROTEIN 6.7 g/dl (6.1-8.1); TROPONIN-I 0.048 ng/ml (0.000-0.120)
[2018-02-04 04:01] LABS: PARTIAL THROMBOPLASTIN TIME 37.4 Sec (25.0-35.0); PROTIME 14.4 Sec (11.9-14.9); PT RATIO 1.1
[2018-02-04 04:05] LABS: CREATININE 14.97 mg/dl (0.44-1.00)
[2018-02-04 06:14] LABS: BASOPHILS % 0.6 % (0.0-2.0); EOSINOPHILS # 0.6 10^3/ul (0.0-0.5); HEMATOCRIT 27.3 % (37.0-47.0); HEMOGLOBIN 8.5 g/dl (12.0-16.0); LYMPHOCYTES # 0.6 10^3/ul (0.8-2.9); MEAN CORPUSCULAR HEMOGLOBIN 30.2 pg (29.0-33.0); MEAN CORPUSCULAR HGB CONC 31.1 g/dl (32.0-37.0); MEAN CORPUSCULAR VOLUME 97.2 fl (82.0-101.0); MEAN PLATELET VOLUME 10.8 fl (7.4-10.4); MONOCYTE # 0.5 10^3/ul (0.3-0.9); MONOCYTES % 8.6 % (0.0-11.0); NEUTROPHIL # 3.6 10^3/ul (1.6-7.5); NEUTROPHILS % 67.6 % (39.0-77.0); PLATELET COUNT 140 10^3/UL (140-415); RED BLOOD COUNT 2.81 10^6/ul (4.20-5.40); RED CELL DISTRIBUTION WIDTH 14.5 % (11.5-14.5)
[2018-02-04 06:14] LABS: WHITE BLOOD COUNT 5.3 10^3/ul (4.8-10.8)
[2018-02-04] MEDS ORDERED: ACETAMINOPHEN 325 MG TAB PO (06:30)
[2018-02-04] MEDS ORDERED: ONDANSETRON 4 MG TAB PO (06:30)
[2018-02-04] MEDS ORDERED: NACL 0.9% 3 ML SYG IV (06:30)
[2018-02-04] MEDS: HYDROCODONE/APAP (5/325) TAB PO (07:06)
[2018-02-04] MEDS ORDERED: APIXABAN 5 MG TABLET PO (09:00)
[2018-02-04] MEDS: CITALOPRAM 20 MG TAB PO (10:29)
[2018-02-04] MEDS: ASPIRIN (EC) 81 MG TAB PO (10:30)
[2018-02-04] MEDS: GABAPENTIN 100 MG CAP PO ×3 (10:30→20:45)
[2018-02-04] MEDS: APIXABAN 5 MG TABLET PO ×2 (12:47→20:46)
[2018-02-04] MEDS: TOPIRAMATE 100 MG TAB PO ×2 (12:48→20:46)
[2018-02-04] MEDS ORDERED: DIPHENHYDRAMINE 25 MG CAP PO (13:30)
[2018-02-04] MEDS ORDERED: HEPARIN 5,000 UNIT/0.5 ML VIAL SC (14:00)
[2018-02-04] MEDS: HYDROmorphONE 2 MG/ML SYG IV (21:23)
[2018-02-04] MEDS: hydrALAzine 20 MG INJ IV (21:23)
[2018-02-04] MEDS ORDERED: VITAMIN A & D 5 GM OINT PACKET TOP (22:21)
[2018-02-04] MEDS: DIPHENHYDRAMINE 50 MG CAP PO (22:36)
[2018-02-05 07:16] LABS: ADD MAN DIFF? NO
[2018-02-05 07:18] LABS: BASOPHILS % 0.7 % (0.0-2.0); EOSINOPHILS # 0.6 10^3/ul (0.0-0.5); EOSINOPHILS % 14.6 % (0.0-7.0); HEMATOCRIT 25.5 % (37.0-47.0); HEMOGLOBIN 7.8 g/dl (12.0-16.0); LYMPHOCYTES # 0.7 10^3/ul (0.8-2.9); LYMPHOCYTES % 16.8 % (15.0-51.0); MEAN CORPUSCULAR HEMOGLOBIN 29.7 pg (29.0-33.0); MEAN CORPUSCULAR HGB CONC 30.6 g/dl (32.0-37.0); MEAN PLATELET VOLUME 11.5 fl (7.4-10.4); MONOCYTE # 0.5 10^3/ul (0.3-0.9); MONOCYTES % 12.6 % (0.0-11.0); NEUTROPHIL # 2.2 10^3/ul (1.6-7.5); NEUTROPHILS % 55.1 % (39.0-77.0); PLATELET COUNT 140 10^3/UL (140-415); RED BLOOD COUNT 2.63 10^6/ul (4.20-5.40); RED CELL DISTRIBUTION WIDTH 14.6 % (11.5-14.5)
[2018-02-05 07:46] LABS: PHOSPHORUS 7.2 mg/dl (2.5-4.9)
[2018-02-05 07:48] LABS: ALANINE AMINOTRANSFERASE 30 IU/L (13-69); ALBUMIN/GLOBULIN RATIO 1.03; ALKALINE PHOSPHATASE 98 IU/L (42-121); ANION GAP 17 (8-16); ASPARTATE AMINO TRANSFERASE 30 IU/L (15-46); BLOOD UREA NITROGEN 91 mg/dl (7-20); CALCIUM 7.2 mg/dl (8.4-10.2); CARBON DIOXIDE 25 mmol/L (21-31); CHLORIDE 104 mmol/L (97-110); GLUCOSE 128 mg/dl (70-220); POTASSIUM 4.4 mmol/L (3.5-5.1); SODIUM 142 mmol/L (135-144); TOTAL PROTEIN 5.9 g/dl (6.1-8.1)
[2018-02-05 08:05] LABS: CREATININE 13.96 mg/dl (0.44-1.00)
[2018-02-05] MEDS: GABAPENTIN 100 MG CAP PO ×3 (11:23→21:28)
[2018-02-05] MEDS: TOPIRAMATE 100 MG TAB PO ×2 (11:23→21:28)
[2018-02-05] MEDS: CITALOPRAM 20 MG TAB PO (11:24)
[2018-02-05] MEDS: ASPIRIN (EC) 81 MG TAB PO (11:24)
[2018-02-05] MEDS: APIXABAN 5 MG TABLET PO ×2 (11:24→21:28)
[2018-02-06] MEDS: HYDROCODONE/APAP (5/325) TAB PO ×2 (00:11→05:49)
[2018-02-06 06:36] LABS: PHOSPHORUS 6.4 mg/dl (2.5-4.9)
[2018-02-06] MEDS: ASPIRIN (EC) 81 MG TAB PO (08:46)
[2018-02-06] MEDS: TOPIRAMATE 100 MG TAB PO ×2 (08:46→21:02)
[2018-02-06] MEDS: CITALOPRAM 20 MG TAB PO (08:46)
[2018-02-06] MEDS: GABAPENTIN 100 MG CAP PO ×3 (08:47→21:02)
[2018-02-06] MEDS: APIXABAN 5 MG TABLET PO ×2 (08:48→21:02)
[2018-02-06] MEDS: morphine 2 MG INJ IV (21:03)
[2018-02-07] MEDS: HYDROCODONE/APAP (5/325) TAB PO ×2 (01:06→08:38)
[2018-02-07] MEDS: morphine 2 MG INJ IV (03:45)
[2018-02-07 06:40] LABS: PHOSPHORUS 5.8 mg/dl (2.5-4.9)
[2018-02-07] MEDS: TOPIRAMATE 100 MG TAB PO ×2 (08:37→21:35)
[2018-02-07] MEDS: GABAPENTIN 100 MG CAP PO ×3 (08:37→21:35)
[2018-02-07] MEDS: CITALOPRAM 20 MG TAB PO (08:38)
[2018-02-07] MEDS: APIXABAN 5 MG TABLET PO ×2 (08:38→21:35)
[2018-02-07] MEDS: ASPIRIN (EC) 81 MG TAB PO (08:38)
[2018-02-07] MEDS: HYDROmorphONE 1 MG/ML SYG IV ×2 (16:28→21:43)
[2018-02-07] MEDS: METHADONE 5 MG TAB PO (17:44)
[2018-02-07] MEDS: FUROSEMIDE 100 MG INJ IV (17:44)
[2018-02-07] MEDS: hydrALAzine 20 MG INJ IV (23:18)
[2018-02-08] MEDS: METHADONE 5 MG TAB PO ×4 (00:53→23:13)
[2018-02-08] MEDS: HYDROmorphONE 1 MG/ML SYG IV ×4 (02:08→20:22)
[2018-02-08] MEDS: FUROSEMIDE 100 MG INJ IV ×2 (06:08→17:46)
[2018-02-08 07:20] LABS: PHOSPHORUS 5.9 mg/dl (2.5-4.9)
[2018-02-08] MEDS: ASPIRIN (EC) 81 MG TAB PO (10:07)
[2018-02-08] MEDS: CITALOPRAM 20 MG TAB PO (10:08)
[2018-02-08] MEDS: GABAPENTIN 100 MG CAP PO ×3 (10:08→20:12)
[2018-02-08] MEDS: APIXABAN 5 MG TABLET PO ×2 (10:08→20:12)
[2018-02-08] MEDS: TOPIRAMATE 100 MG TAB PO ×2 (10:08→20:13)
[2018-02-08] MEDS: HYDROCODONE/APAP (5/325) TAB PO (17:43)
[2018-02-09] MEDS: HYDROCODONE/APAP (5/325) TAB PO ×2 (00:29→23:08)
[2018-02-09] MEDS: HYDROmorphONE 1 MG/ML SYG IV ×5 (02:03→22:10)
[2018-02-09] MEDS: DIPHENHYDRAMINE 50 MG CAP PO ×2 (02:30→18:25)
[2018-02-09] MEDS: FUROSEMIDE 100 MG INJ IV ×2 (05:16→18:07)
[2018-02-09 06:55] LABS: IRON 66 ug/dl (35-150)
[2018-02-09 06:58] LABS: PHOSPHORUS 6.5 mg/dl (2.5-4.9)
[2018-02-09 07:04] LABS: % IRON SATURATION 28 % SAT (22-52); ANION GAP 14 (8-16); BLOOD UREA NITROGEN 74 mg/dl (7-20); CALCIUM 7.3 mg/dl (8.4-10.2); CARBON DIOXIDE 27 mmol/L (21-31); CHLORIDE 104 mmol/L (97-110); CREATININE 11.84 mg/dl (0.44-1.00); GLUCOSE 103 mg/dl (70-220); POTASSIUM 4.1 mmol/L (3.5-5.1); SODIUM 141 mmol/L (135-144); TOTAL IRON BINDING CAPACITY 232 ug/dl (241-421)
[2018-02-09] MEDS: GABAPENTIN 100 MG CAP PO ×3 (08:20→20:06)
[2018-02-09] MEDS: APIXABAN 5 MG TABLET PO ×2 (08:20→20:06)
[2018-02-09] MEDS: ASPIRIN (EC) 81 MG TAB PO (08:20)
[2018-02-09] MEDS: TOPIRAMATE 100 MG TAB PO ×2 (08:21→20:07)
[2018-02-09] MEDS: CITALOPRAM 20 MG TAB PO (08:21)
[2018-02-09] MEDS: METHADONE 5 MG TAB PO ×2 (08:29→15:34)
[2018-02-09 09:06] LABS: FREE T4 (FREE THYROXINE) 1.27 ng/dl (0.79-2.35)
[2018-02-09] MEDS: NIFEdipine (XL) 30 MG TAB PO (15:37)
[2018-02-09] MEDS: METOLAZONE 5 MG TAB PO (18:20)
[2018-02-10] MEDS: METHADONE 5 MG TAB PO ×3 (00:34→15:46)
[2018-02-10] MEDS: hydrALAzine 20 MG INJ IV (02:20)
[2018-02-10] MEDS: FUROSEMIDE 100 MG INJ IV ×2 (06:07→18:34)
[2018-02-10] MEDS: HYDROmorphONE 1 MG/ML SYG IV (06:08)
[2018-02-10 06:20] LABS: ANION GAP 15 (8-16); BLOOD UREA NITROGEN 67 mg/dl (7-20); CALCIUM 7.1 mg/dl (8.4-10.2); CARBON DIOXIDE 28 mmol/L (21-31); CHLORIDE 103 mmol/L (97-110); CREATININE 11.93 mg/dl (0.44-1.00); GLUCOSE 106 mg/dl (70-220); POTASSIUM 3.9 mmol/L (3.5-5.1); SODIUM 142 mmol/L (135-144)
[2018-02-10] MEDS: GABAPENTIN 100 MG CAP PO ×3 (08:01→20:51)
[2018-02-10] MEDS: TOPIRAMATE 100 MG TAB PO ×2 (08:01→20:51)
[2018-02-10] MEDS: METOLAZONE 5 MG TAB PO (08:02)
[2018-02-10] MEDS: APIXABAN 5 MG TABLET PO ×2 (08:02→20:52)
[2018-02-10] MEDS: NIFEdipine (XL) 30 MG TAB PO (08:02)
[2018-02-10] MEDS: CITALOPRAM 20 MG TAB PO (08:02)
[2018-02-10] MEDS: HYDROCODONE/APAP (5/325) TAB PO ×2 (13:02→18:31)
[2018-02-11] MEDS: METHADONE 5 MG TAB PO ×3 (00:12→16:34)
[2018-02-11] MEDS: HYDROCODONE/APAP (5/325) TAB PO ×3 (06:10→22:07)
[2018-02-11] MEDS: FUROSEMIDE 100 MG INJ IV ×2 (06:21→17:14)
[2018-02-11] MEDS: CITALOPRAM 20 MG TAB PO (09:16)
[2018-02-11] MEDS: APIXABAN 5 MG TABLET PO ×2 (09:16→21:22)
[2018-02-11] MEDS: NIFEdipine (XL) 30 MG TAB PO (09:16)
[2018-02-11] MEDS: GABAPENTIN 100 MG CAP PO ×3 (09:16→21:23)
[2018-02-11] MEDS: METOLAZONE 5 MG TAB PO (09:17)
[2018-02-11] MEDS: TOPIRAMATE 100 MG TAB PO ×2 (09:17→21:24)
[2018-02-11] MEDS: BISACODYL (EC) 5 MG TAB PO (09:23)
[2018-02-11] MEDS: DIPHENHYDRAMINE 50 MG CAP PO (22:10)
[2018-02-12] MEDS: METHADONE 5 MG TAB PO ×3 (01:10→17:41)
[2018-02-12] MEDS: FUROSEMIDE 100 MG INJ IV ×2 (05:22→17:43)
[2018-02-12] MEDS: HYDROCODONE/APAP (5/325) TAB PO ×3 (05:23→20:31)
[2018-02-12 07:08] LABS: ANION GAP 13 (8-16); BLOOD UREA NITROGEN 65 mg/dl (7-20); CALCIUM 7.3 mg/dl (8.4-10.2); CARBON DIOXIDE 28 mmol/L (21-31); CHLORIDE 102 mmol/L (97-110); CREATININE 11.94 mg/dl (0.44-1.00); GLUCOSE 86 mg/dl (70-220); POTASSIUM 4.1 mmol/L (3.5-5.1); SODIUM 139 mmol/L (135-144)
[2018-02-12] MEDS: CITALOPRAM 20 MG TAB PO (08:26)
[2018-02-12] MEDS: APIXABAN 5 MG TABLET PO ×2 (08:26→20:29)
[2018-02-12] MEDS: TOPIRAMATE 100 MG TAB PO ×2 (08:27→20:30)
[2018-02-12] MEDS: NIFEdipine (XL) 30 MG TAB PO (08:27)
[2018-02-12] MEDS: GABAPENTIN 100 MG CAP PO ×3 (08:27→20:29)
[2018-02-12] MEDS: METOLAZONE 5 MG TAB PO (08:28)
[2018-02-13] MEDS: METHADONE 5 MG TAB PO ×4 (00:10→23:52)
[2018-02-13] MEDS: HYDROCODONE/APAP (5/325) TAB PO ×3 (03:09→20:32)
[2018-02-13] MEDS: morphine 2 MG INJ IV ×3 (05:18→18:34)
[2018-02-13] MEDS: FUROSEMIDE 100 MG INJ IV ×2 (06:02→17:44)
[2018-02-13] MEDS: METOLAZONE 5 MG TAB PO (08:52)
[2018-02-13] MEDS: CITALOPRAM 20 MG TAB PO (08:52)
[2018-02-13] MEDS: GABAPENTIN 100 MG CAP PO ×3 (08:52→20:31)
[2018-02-13] MEDS: NIFEdipine (XL) 30 MG TAB PO (08:52)
[2018-02-13] MEDS: APIXABAN 5 MG TABLET PO ×2 (08:52→20:32)
[2018-02-13] MEDS: TOPIRAMATE 100 MG TAB PO ×2 (08:53→20:32)
[2018-02-13] MEDS ORDERED: hydrALAzine 20 MG INJ (09:11)
[2018-02-13] MEDS: hydrALAzine 20 MG INJ IV (09:18)
[2018-02-13] MEDS: DOCUSATE SODIUM 100 MG CAP PO (14:17)
[2018-02-13] MEDS: BISACODYL (EC) 5 MG TAB PO (14:17)
[2018-02-13 17:07] LABS: ADD UMIC YES; UR ASCORBIC ACID NEGATIVE (NEGATIVE); UR BILIRUBIN (Dip) NEGATIVE (NEGATIVE); UR BLOOD (Dip) 1+ mg/dL (NEGATIVE); UR CLARITY CLEAR (CLEAR); UR COLOR STRAW (YELLOW); UR GLUCOSE (Dip) NEGATIVE (NEGATIVE); UR KETONES (Dip) NEGATIVE (NEGATIVE); UR LEUKOCYTE ESTERASE (Dip) TRACE Leu/ul (NEGATIVE); UR NITRITE (Dip) NEGATIVE (NEGATIVE); UR RBC 1 /HPF (0-5); UR SPECIFIC GRAVITY (Dip) 1.006 (1.003-1.030); UR SQUAMOUS EPITHELIAL CELL FEW /HPF (FEW); UR TOTAL PROTEIN (Dip) 1+ mg/dl (NEGATIVE); UR UROBILINOGEN (Dip) NEGATIVE (NEGATIVE); UR WBC 2 /HPF (0-5)
[2018-02-14] MEDS: morphine 2 MG INJ IV ×2 (01:29→05:19)
[2018-02-14] MEDS: FUROSEMIDE 100 MG INJ IV (05:18)
[2018-02-14 06:22] LABS: ADD MAN DIFF? NO
[2018-02-14 06:30] LABS: BASOPHILS % 0.4 % (0.0-2.0); EOSINOPHILS # 0.5 10^3/ul (0.0-0.5); EOSINOPHILS % 10.1 % (0.0-7.0); HEMATOCRIT 25.2 % (37.0-47.0); HEMOGLOBIN 7.7 g/dl (12.0-16.0); LYMPHOCYTES # 0.8 10^3/ul (0.8-2.9); LYMPHOCYTES % 15.3 % (15.0-51.0); MEAN CORPUSCULAR HEMOGLOBIN 29.8 pg (29.0-33.0); MEAN CORPUSCULAR HGB CONC 30.6 g/dl (32.0-37.0); MEAN CORPUSCULAR VOLUME 97.7 fl (82.0-101.0); MEAN PLATELET VOLUME 10.7 fl (7.4-10.4); MONOCYTE # 0.6 10^3/ul (0.3-0.9); MONOCYTES % 11.1 % (0.0-11.0); NEUTROPHIL # 3.3 10^3/ul (1.6-7.5); NEUTROPHILS % 62.9 % (39.0-77.0); PLATELET COUNT 187 10^3/UL (140-415); RED BLOOD COUNT 2.58 10^6/ul (4.20-5.40); RED CELL DISTRIBUTION WIDTH 14.3 % (11.5-14.5)
[2018-02-14 06:30] LABS: WHITE BLOOD COUNT 5.2 10^3/ul (4.8-10.8)
[2018-02-14 06:57] LABS: ANION GAP 15 (8-16); BLOOD UREA NITROGEN 61 mg/dl (7-20); CALCIUM 7.4 mg/dl (8.4-10.2); CARBON DIOXIDE 27 mmol/L (21-31); CHLORIDE 101 mmol/L (97-110); CREATININE 11.35 mg/dl (0.44-1.00); GLUCOSE 98 mg/dl (70-220); POTASSIUM 4.1 mmol/L (3.5-5.1); SODIUM 139 mmol/L (135-144)
[2018-02-14] MEDS: METHADONE 5 MG TAB PO (07:54)
[2018-02-14] MEDS: CITALOPRAM 20 MG TAB PO (08:49)
[2018-02-14] MEDS: TOPIRAMATE 100 MG TAB PO (08:49)
[2018-02-14] MEDS: GABAPENTIN 100 MG CAP PO (08:49)
[2018-02-14] MEDS: NIFEdipine (XL) 30 MG TAB PO (08:50)
[2018-02-14] MEDS: METOLAZONE 5 MG TAB PO (08:50)
[2018-02-14] MEDS: APIXABAN 5 MG TABLET PO (08:51)
== END 2018-02-14 12:45 | disposition left against medical advice (07) | DRG 640 ==
LOC: MS2 02-05 23:53 → E/R 22:54 → TEL 02-04 04:33
PROC: 3E1M39Z Irrigation of Peritoneal Cavity using Dialysate, Percutaneous Approach (ICD-10-PCS; principal; 2018-02-04)
DX: E87.79 Other fluid overload (principal); N18.6 End stage renal disease; I12.0 Hypertensive chronic kidney disease with stage 5 chronic kidney disease or end stage renal disease; Z91.15 Patient's noncompliance with renal dialysis; Z99.2 Dependence on renal dialysis; D63.1 Anemia in chronic kidney disease; E78.5 Hyperlipidemia, unspecified; Z76.5 Malingerer [conscious simulation]; F32.9 Major depressive disorder, single episode, unspecified; I48.91 Unspecified atrial fibrillation; Z59.1 Inadequate housing; R52 Pain, unspecified
CPT/HCPCS: 36415; 71045; 74176; 80048; 80053; 81001; 82728; 83540; 83735; 83880; 84100; 84439; 84443; 84484; 84703; 85025; 85610; 85730; 87081; 90945; 93005; 93970; 99285-25

== ENCOUNTER 2018-02-19 00:27 | Inpatient (IN) | payer BC ==
[2018-02-19] MEDS: NITROGLYCERIN (SL) 0.4 MG TAB SL (01:58)
[2018-02-19] MEDS: ASPIRIN 81 MG TAB PO (01:58)
[2018-02-19] MEDS: hydrALAzine 20 MG INJ IV ×4 (01:59→21:26)
[2018-02-19] MEDS ORDERED: KETOROLAC 30 MG INJ IM (02:24)
[2018-02-19 02:44] LABS: ADD MAN DIFF? NO
[2018-02-19 02:46] LABS: BASOPHILS % 0.5 % (0.0-2.0); EOSINOPHILS # 0.5 10^3/ul (0.0-0.5); EOSINOPHILS % 8.2 % (0.0-7.0); HEMATOCRIT 22.5 % (37.0-47.0); HEMOGLOBIN 7.1 g/dl (12.0-16.0); LYMPHOCYTES # 0.8 10^3/ul (0.8-2.9); LYMPHOCYTES % 14.2 % (15.0-51.0); MEAN CORPUSCULAR HEMOGLOBIN 30.3 pg (29.0-33.0); MEAN CORPUSCULAR HGB CONC 31.6 g/dl (32.0-37.0); MEAN CORPUSCULAR VOLUME 96.2 fl (82.0-101.0); MEAN PLATELET VOLUME 10.9 fl (7.4-10.4); MONOCYTE # 0.6 10^3/ul (0.3-0.9); MONOCYTES % 10.7 % (0.0-11.0); NEUTROPHIL # 3.8 10^3/ul (1.6-7.5); NEUTROPHILS % 66.1 % (39.0-77.0); PLATELET COUNT 145 10^3/UL (140-415); RED BLOOD COUNT 2.34 10^6/ul (4.20-5.40); RED CELL DISTRIBUTION WIDTH 14.4 % (11.5-14.5)
[2018-02-19 02:46] LABS: WHITE BLOOD COUNT 5.7 10^3/ul (4.8-10.8)
[2018-02-19 03:20] LABS: ALANINE AMINOTRANSFERASE 38 IU/L (13-69); ALBUMIN 3.3 g/dl (3.3-4.9); ALBUMIN/GLOBULIN RATIO 1.03; ALKALINE PHOSPHATASE 109 IU/L (42-121); ANION GAP 22 (8-16); ASPARTATE AMINO TRANSFERASE 56 IU/L (15-46); BILIRUBIN,INDIRECT 0.1 mg/dl (0-1.1); BILIRUBIN,TOTAL 0.1 mg/dl (0.2-1.3); BLOOD UREA NITROGEN 84 mg/dl (7-20); CALCIUM 6.9 mg/dl (8.4-10.2); CARBON DIOXIDE 24 mmol/L (21-31); CHLORIDE 105 mmol/L (97-110); GLUCOSE 92 mg/dl (70-220); LIPASE 47 U/L (23-300); POTASSIUM 4.3 mmol/L (3.5-5.1); SODIUM 147 mmol/L (135-144); TOTAL PROTEIN 6.5 g/dl (6.1-8.1)
[2018-02-19] MEDS: KETOROLAC 30 MG INJ IV (03:22)
[2018-02-19 03:30] LABS: TROPONIN-I 0.033 ng/ml (0.000-0.120)
[2018-02-19 03:32] LABS: CREATININE 16.21 mg/dl (0.44-1.00)
[2018-02-19] MEDS ORDERED: ONDANSETRON 4 MG INJ IV (04:00)
[2018-02-19] MEDS ORDERED: ALBUTEROL/IPRATROPIUM (NEB) 3 ML AMP HHN (04:00)
[2018-02-19] MEDS ORDERED: NACL 0.9% 3 ML SYG IV (04:00)
[2018-02-19 04:54] LABS: ADD MAN DIFF? NO
[2018-02-19 05:13] LABS: BASOPHILS % 0.5 % (0.0-2.0); EOSINOPHILS # 0.5 10^3/ul (0.0-0.5); HEMOGLOBIN 7.3 g/dl (12.0-16.0); LYMPHOCYTES % 17.3 % (15.0-51.0); MEAN CORPUSCULAR HEMOGLOBIN 30.3 pg (29.0-33.0); MEAN CORPUSCULAR HGB CONC 31.7 g/dl (32.0-37.0); MEAN CORPUSCULAR VOLUME 95.4 fl (82.0-101.0); MEAN PLATELET VOLUME 10.6 fl (7.4-10.4); MONOCYTE # 0.6 10^3/ul (0.3-0.9); MONOCYTES % 10.5 % (0.0-11.0); NEUTROPHIL # 3.7 10^3/ul (1.6-7.5); NEUTROPHILS % 62.4 % (39.0-77.0); PLATELET COUNT 153 10^3/UL (140-415); RED BLOOD COUNT 2.41 10^6/ul (4.20-5.40); RED CELL DISTRIBUTION WIDTH 14.1 % (11.5-14.5)
[2018-02-19 05:13] LABS: WHITE BLOOD COUNT 5.9 10^3/ul (4.8-10.8)
[2018-02-19 05:15] LABS: ALANINE AMINOTRANSFERASE 41 IU/L (13-69); ALBUMIN 3.3 g/dl (3.3-4.9); ALKALINE PHOSPHATASE 102 IU/L (42-121); ANION GAP 21 (8-16); ASPARTATE AMINO TRANSFERASE 49 IU/L (15-46); BILIRUBIN,INDIRECT 0.1 mg/dl (0-1.1); BILIRUBIN,TOTAL 0.1 mg/dl (0.2-1.3); BLOOD UREA NITROGEN 85 mg/dl (7-20); CALCIUM 6.8 mg/dl (8.4-10.2); CARBON DIOXIDE 23 mmol/L (21-31); CHLORIDE 106 mmol/L (97-110); GLUCOSE 90 mg/dl (70-220); MAGNESIUM 1.9 mg/dl (1.7-2.5); PHOSPHORUS 9.5 mg/dl (2.5-4.9); POTASSIUM 4.1 mmol/L (3.5-5.1); SODIUM 146 mmol/L (135-144); TOTAL PROTEIN 6.3 g/dl (6.1-8.1)
[2018-02-19] MEDS: morphine 2 MG INJ IV (05:22)
[2018-02-19 06:18] LABS: CREATININE 15.98 mg/dl (0.44-1.00)
[2018-02-19] MEDS: FAMOTIDINE 20 MG INJ IV (08:44)
[2018-02-19] MEDS: TOPIRAMATE 100 MG TAB PO ×2 (08:44→23:28)
[2018-02-19] MEDS: GABAPENTIN 100 MG CAP PO ×3 (08:45→23:28)
[2018-02-19] MEDS: CITALOPRAM 20 MG TAB PO (08:45)
[2018-02-19] MEDS: ASPIRIN (EC) 81 MG TAB PO (08:49)
[2018-02-19] MEDS: ACETAMINOPHEN 325 MG TAB PO (23:32)
[2018-02-20] MEDS: traMADol 50 MG TAB PO (04:01)
[2018-02-20] MEDS: HYDROCODONE/APAP (5/325) TAB PO (05:08)
[2018-02-20 06:13] LABS: ADD MAN DIFF? NO
[2018-02-20 06:24] LABS: BASOPHILS % 0.7 % (0.0-2.0); EOSINOPHILS # 0.7 10^3/ul (0.0-0.5); HEMATOCRIT 24.7 % (37.0-47.0); HEMOGLOBIN 7.8 g/dl (12.0-16.0); LYMPHOCYTES # 0.8 10^3/ul (0.8-2.9); LYMPHOCYTES % 14.6 % (15.0-51.0); MEAN CORPUSCULAR HEMOGLOBIN 30.2 pg (29.0-33.0); MEAN CORPUSCULAR HGB CONC 31.6 g/dl (32.0-37.0); MEAN CORPUSCULAR VOLUME 95.7 fl (82.0-101.0); MEAN PLATELET VOLUME 11.4 fl (7.4-10.4); MONOCYTE # 0.5 10^3/ul (0.3-0.9); MONOCYTES % 9.3 % (0.0-11.0); NEUTROPHIL # 3.5 10^3/ul (1.6-7.5); PLATELET COUNT 184 10^3/UL (140-415); RED BLOOD COUNT 2.58 10^6/ul (4.20-5.40); RED CELL DISTRIBUTION WIDTH 14.3 % (11.5-14.5)
[2018-02-20 06:24] LABS: WHITE BLOOD COUNT 5.7 10^3/ul (4.8-10.8)
[2018-02-20 06:48] LABS: ANION GAP 22 (8-16); BLOOD UREA NITROGEN 84 mg/dl (7-20); CALCIUM 6.9 mg/dl (8.4-10.2); CARBON DIOXIDE 25 mmol/L (21-31); CHLORIDE 101 mmol/L (97-110); GLUCOSE 108 mg/dl (70-220); MAGNESIUM 1.8 mg/dl (1.7-2.5); PHOSPHORUS 8.7 mg/dl (2.5-4.9); POTASSIUM 4.2 mmol/L (3.5-5.1); SODIUM 144 mmol/L (135-144)
[2018-02-20 06:58] LABS: CREATININE 14.49 mg/dl (0.44-1.00)
[2018-02-20] MEDS: CITALOPRAM 20 MG TAB PO (09:00)
[2018-02-20] MEDS: ASPIRIN (EC) 81 MG TAB PO (09:00)
[2018-02-20] MEDS: FAMOTIDINE 20 MG INJ IV (09:00)
[2018-02-20] MEDS: GABAPENTIN 100 MG CAP PO ×3 (09:00→20:56)
[2018-02-20] MEDS: TOPIRAMATE 100 MG TAB PO ×2 (09:01→21:33)
[2018-02-20] MEDS: METHADONE 10 MG TAB PO ×2 (13:49→21:06)
[2018-02-20] MEDS: hydrALAzine 20 MG INJ IV (15:32)
[2018-02-20] MEDS: FUROSEMIDE 40 MG INJ IV (17:57)
[2018-02-21] MEDS: METHADONE 10 MG TAB PO ×3 (05:41→21:29)
[2018-02-21] MEDS: FUROSEMIDE 40 MG INJ IV ×2 (05:42→17:39)
[2018-02-21] MEDS: CITALOPRAM 20 MG TAB PO (08:39)
[2018-02-21] MEDS: TOPIRAMATE 100 MG TAB PO ×2 (08:40→21:30)
[2018-02-21] MEDS: GABAPENTIN 100 MG CAP PO ×3 (08:40→21:30)
[2018-02-21] MEDS: ASPIRIN (EC) 81 MG TAB PO (08:40)
[2018-02-22] MEDS: hydrALAzine 20 MG INJ IV (06:15)
[2018-02-22] MEDS: METHADONE 10 MG TAB PO ×3 (06:15→20:01)
[2018-02-22] MEDS: FUROSEMIDE 40 MG INJ IV ×2 (06:16→17:37)
[2018-02-22] MEDS: ASPIRIN (EC) 81 MG TAB PO (09:03)
[2018-02-22] MEDS: CITALOPRAM 20 MG TAB PO (09:03)
[2018-02-22] MEDS: GABAPENTIN 100 MG CAP PO ×3 (09:04→20:00)
[2018-02-22] MEDS: TOPIRAMATE 100 MG TAB PO ×2 (09:04→20:01)
[2018-02-22] MEDS: NIFEdipine (XL) 30 MG TAB PO (17:37)
[2018-02-23] MEDS: hydrALAzine 20 MG INJ IV (01:40)
[2018-02-23] MEDS: FUROSEMIDE 40 MG INJ IV ×2 (05:33→17:28)
[2018-02-23] MEDS: METHADONE 10 MG TAB PO ×2 (05:33→13:35)
[2018-02-23] MEDS: GABAPENTIN 100 MG CAP PO ×3 (08:41→21:01)
[2018-02-23] MEDS: NIFEdipine (XL) 30 MG TAB PO (08:42)
[2018-02-23] MEDS: TOPIRAMATE 100 MG TAB PO ×2 (08:42→21:01)
[2018-02-23] MEDS: ASPIRIN (EC) 81 MG TAB PO (08:42)
[2018-02-23] MEDS: CITALOPRAM 20 MG TAB PO (08:42)
[2018-02-24] MEDS: METHADONE 10 MG TAB PO (01:09)
[2018-02-24] MEDS: FUROSEMIDE 40 MG INJ IV (05:49)
[2018-02-24] MEDS: CITALOPRAM 20 MG TAB PO (08:18)
[2018-02-24] MEDS: GABAPENTIN 100 MG CAP PO ×2 (08:18→12:23)
[2018-02-24] MEDS: ASPIRIN (EC) 81 MG TAB PO (08:18)
[2018-02-24] MEDS: TOPIRAMATE 100 MG TAB PO (08:19)
[2018-02-24] MEDS: NIFEdipine (XL) 30 MG TAB PO (08:19)
== END 2018-02-24 16:45 | disposition left against medical advice (07) | DRG 291 ==
LOC: MS4 02-20 11:30 → PP2 02-22 10:27 → E/R 00:27 → MS3 03:22
PROC: 3E1M39Z Irrigation of Peritoneal Cavity using Dialysate, Percutaneous Approach (ICD-10-PCS; principal; 2018-02-19)
DX: I13.2 Hypertensive heart and chronic kidney disease with heart failure and with stage 5 chronic kidney disease, or end stage renal disease (principal); N18.6 End stage renal disease; I50.33 Acute on chronic diastolic (congestive) heart failure; I16.1 Hypertensive emergency; E11.22 Type 2 diabetes mellitus with diabetic chronic kidney disease; Z99.2 Dependence on renal dialysis; Z76.5 Malingerer [conscious simulation]; Z91.15 Patient's noncompliance with renal dialysis; G89.4 Chronic pain syndrome; Z59.0 Homelessness; R07.9 Chest pain, unspecified
CPT/HCPCS: 36415; 71045; 80048; 80053; 83690; 83735; 84100; 84484; 84703; 85025; 86850; 86900; 86901; 86920; 90945; 93005; 96374; 96375; 96376; 99291-25

== ENCOUNTER 2018-02-27 06:09 | Inpatient (IN) | payer BC ==
[2018-02-27] MEDS: NICARDipine HCL 30 MG CAPSULE PO (06:57)
[2018-02-27 07:54] LABS: ADD MAN DIFF? NO
[2018-02-27 07:55] LABS: BASOPHILS % 0.5 % (0.0-2.0); EOSINOPHILS # 0.4 10^3/ul (0.0-0.5); EOSINOPHILS % 7.2 % (0.0-7.0); HEMATOCRIT 25.7 % (37.0-47.0); HEMOGLOBIN 7.7 g/dl (12.0-16.0); LYMPHOCYTES # 1.1 10^3/ul (0.8-2.9); LYMPHOCYTES % 18.1 % (15.0-51.0); MEAN CORPUSCULAR HEMOGLOBIN 30.1 pg (29.0-33.0); MEAN CORPUSCULAR VOLUME 100.4 fl (82.0-101.0); MEAN PLATELET VOLUME 10.6 fl (7.4-10.4); MONOCYTE # 0.7 10^3/ul (0.3-0.9); MONOCYTES % 11.2 % (0.0-11.0); NEUTROPHIL # 3.8 10^3/ul (1.6-7.5); NEUTROPHILS % 62.7 % (39.0-77.0); PLATELET COUNT 137 10^3/UL (140-415); RED BLOOD COUNT 2.56 10^6/ul (4.20-5.40)
[2018-02-27 08:13] LABS: ALANINE AMINOTRANSFERASE 25 IU/L (13-69); ALBUMIN 3.7 g/dl (3.3-4.9); ALBUMIN/GLOBULIN RATIO 1.27; ALKALINE PHOSPHATASE 90 IU/L (42-121); ANION GAP 22 (8-16); ASPARTATE AMINO TRANSFERASE 26 IU/L (15-46); BLOOD UREA NITROGEN 72 mg/dl (7-20); CALCIUM 6.8 mg/dl (8.4-10.2); CARBON DIOXIDE 27 mmol/L (21-31); CHLORIDE 103 mmol/L (97-110); GLUCOSE 90 mg/dl (70-220); SODIUM 147 mmol/L (135-144); TOTAL PROTEIN 6.6 g/dl (6.1-8.1)
[2018-02-27] MEDS: hydrALAzine 20 MG INJ IV (08:18)
[2018-02-27 08:20] LABS: CREATININE 14.23 mg/dl (0.44-1.00)
[2018-02-27 08:25] LABS: B-TYPE NATRIURETIC PEPTIDE 29000 PG/ML (0-125); TROPONIN-I 0.037 ng/ml (0.000-0.120)
[2018-02-27] MEDS ORDERED: ONDANSETRON 4 MG INJ IV ×2 (10:00→11:30)
[2018-02-27] MEDS ORDERED: ACETAMINOPHEN 325 MG TAB PO ×2 (10:00→11:30)
[2018-02-27] MEDS ORDERED: ACETAMINOPHEN 650 MG SUPP PR (11:30)
[2018-02-27] MEDS ORDERED: BISACODYL 10 MG SUPP PR (11:30)
[2018-02-27] MEDS ORDERED: DOCUSATE SODIUM 100 MG CAP PO (11:30)
[2018-02-27] MEDS ORDERED: NACL 0.9% 3 ML SYG IV (11:30)
[2018-02-27] MEDS ORDERED: MAGNESIUM HYDROXIDE 30ML CUP PO (11:30)
[2018-02-27] MEDS: AMLODIPINE 5 MG TAB PO ×2 (12:15→22:22)
[2018-02-27] MEDS: GABAPENTIN 100 MG CAP PO ×2 (13:07→20:03)
[2018-02-27 16:03] LABS: HEPATITIS B SURFACE ANTIBODY POSITIVE (NEGATIVE)
[2018-02-27 16:12] LABS: HEPATITIS B SURFACE ANTIGEN NEGATIVE (NEGATIVE)
[2018-02-27] MEDS: APIXABAN 5 MG TABLET PO (20:03)
[2018-02-27] MEDS: TOPIRAMATE 100 MG TAB PO (20:04)
[2018-02-28 06:45] LABS: ADD MAN DIFF? NO
[2018-02-28 06:54] LABS: ABNORMAL IP MESSAGE 1; HEMATOCRIT 22.4 % (37.0-47.0); MEAN CORPUSCULAR HEMOGLOBIN 30.3 pg (29.0-33.0); MEAN CORPUSCULAR HGB CONC 30.8 g/dl (32.0-37.0); MEAN CORPUSCULAR VOLUME 98.2 fl (82.0-101.0); MEAN PLATELET VOLUME 11.2 fl (7.4-10.4); PLATELET COUNT 148 10^3/UL (140-415); RED BLOOD COUNT 2.28 10^6/ul (4.20-5.40); RED CELL DISTRIBUTION WIDTH 14.1 % (11.5-14.5)
[2018-02-28 06:54] LABS: WHITE BLOOD COUNT 5.2 10^3/ul (4.8-10.8)
[2018-02-28 06:57] LABS: POSITIVE DIFF @See below
[2018-02-28 06:58] LABS: HEMOGLOBIN 6.9 g/dl (12.0-16.0)
[2018-02-28 06:59] LABS: PATH REVIEW? YES
[2018-02-28 07:32] LABS: ALANINE AMINOTRANSFERASE 20 IU/L (13-69); ALBUMIN 2.8 g/dl (3.3-4.9); ALBUMIN/GLOBULIN RATIO 1.16; ALKALINE PHOSPHATASE 61 IU/L (42-121); ANION GAP 17 (8-16); ASPARTATE AMINO TRANSFERASE 17 IU/L (15-46); BLOOD UREA NITROGEN 70 mg/dl (7-20); CALCIUM 6.3 mg/dl (8.4-10.2); CARBON DIOXIDE 27 mmol/L (21-31); CHLORIDE 104 mmol/L (97-110); CHOL/HDL RATIO 3.1 RATIO; CHOLESTEROL 129 mg/dl (100-200); CREATININE 12.99 mg/dl (0.44-1.00); GLUCOSE 123 mg/dl (70-220); HDL CHOLESTEROL 41 mg/dl (34-82); LDL CHOLESTEROL,CALCULATED 75 mg/dl; MAGNESIUM 1.5 mg/dl (1.7-2.5); PHOSPHORUS 6.1 mg/dl (2.5-4.9); POTASSIUM 4.2 mmol/L (3.5-5.1); SODIUM 144 mmol/L (135-144); TOTAL PROTEIN 5.2 g/dl (6.1-8.1); TRIGLYCERIDES 67 mg/dl (0-149)
[2018-02-28 07:40] LABS: FREE THYROXINE INDEX (Calc) 1.84 ug/ml (0.65-3.89); T3 UPTAKE 33.4 % (23.5-40.5); T4 (THYROXINE) 5.5 ug/dl (5.5-11.0)
[2018-02-28 08:00] LABS: HEMOGLOBIN A1C 5.3 % (0-5.9)
[2018-02-28 09:11] LABS: ANISOCYTOSIS 1+ (0-0); EOSINOPHILS % (M) 13 % (0-7); GIANT THROMBO% (M) 1 % (0-0); LYMPHOCYTES #M 1.3 10^3/ul (0.8-2.9); LYMPHOCYTES % (M) 26 % (15-51); MONOCYTE #M 0.2 10^3/ul (0.3-0.9); MONOCYTES % (M) 4 % (0-11); PLATELET ESTIMATE NORMAL; POIKILOCYTOSIS 1+ (0-0); POLYCHROMASIA 1+ (0-0); SEGMENTED NEUTROPHILS (M) % 57 % (39-77); SMUDGE%M 1 % (0-0)
[2018-02-28] MEDS: ASPIRIN (EC) 81 MG TAB PO (09:34)
[2018-02-28] MEDS: APIXABAN 5 MG TABLET PO ×2 (09:34→21:22)
[2018-02-28] MEDS: AMLODIPINE 5 MG TAB PO ×2 (09:34→21:22)
[2018-02-28] MEDS: GABAPENTIN 100 MG CAP PO ×3 (09:35→21:20)
[2018-02-28] MEDS: TOPIRAMATE 100 MG TAB PO ×2 (09:35→21:20)
[2018-02-28] MEDS: CITALOPRAM 20 MG TAB PO (09:35)
[2018-02-28] MEDS: morphine 2 MG INJ IV (12:14)
[2018-02-28] MEDS: HYDROCODONE/APAP (10/325) TAB PO (14:20)
[2018-02-28] MEDS: LACTOBACILLUS RHAMNOSUS CAP PO ×2 (14:20→21:21)
[2018-02-28] MEDS: morphine LIQ (10 MG/5 ML) CUP PO ×2 (15:50→21:56)
[2018-02-28 16:49] LABS: AHG CROSSMATCH 1 2
[2018-02-28] MEDS: hydrALAzine 20 MG INJ IV (18:38)
[2018-03-01] MEDS: HYDROCODONE/APAP (10/325) TAB PO (00:18)
[2018-03-01] MEDS: morphine LIQ (10 MG/5 ML) CUP PO (05:27)
[2018-03-01] MEDS: LEVOTHYROXINE 25 MCG TAB PO (05:27)
[2018-03-01] MEDS ORDERED: DIPHENHYDRAMINE 50 MG INJ IV (05:30)
[2018-03-01] MEDS: TOPIRAMATE 100 MG TAB PO (08:48)
[2018-03-01] MEDS: GABAPENTIN 100 MG CAP PO ×2 (08:48→13:45)
[2018-03-01] MEDS: CITALOPRAM 20 MG TAB PO (08:48)
[2018-03-01] MEDS: ASPIRIN (EC) 81 MG TAB PO (08:48)
[2018-03-01] MEDS: APIXABAN 5 MG TABLET PO (08:48)
[2018-03-01] MEDS: LACTOBACILLUS RHAMNOSUS CAP PO (08:48)
[2018-03-01] MEDS: AMLODIPINE 5 MG TAB PO (08:49)
[2018-03-01 09:00] LABS: ADD MAN DIFF? NO
[2018-03-01 09:11] LABS: BASOPHILS % 0.8 % (0.0-2.0); EOSINOPHILS # 0.6 10^3/ul (0.0-0.5); EOSINOPHILS % 12.7 % (0.0-7.0); HEMATOCRIT 30.9 % (37.0-47.0); HEMOGLOBIN 9.8 g/dl (12.0-16.0); LYMPHOCYTES % 19.8 % (15.0-51.0); MEAN CORPUSCULAR HEMOGLOBIN 30.2 pg (29.0-33.0); MEAN CORPUSCULAR HGB CONC 31.7 g/dl (32.0-37.0); MEAN CORPUSCULAR VOLUME 95.4 fl (82.0-101.0); MEAN PLATELET VOLUME 10.6 fl (7.4-10.4); MONOCYTE # 0.5 10^3/ul (0.3-0.9); MONOCYTES % 10.2 % (0.0-11.0); NEUTROPHIL # 2.8 10^3/ul (1.6-7.5); NEUTROPHILS % 56.3 % (39.0-77.0); PLATELET COUNT 198 10^3/UL (140-415); RED BLOOD COUNT 3.24 10^6/ul (4.20-5.40); RED CELL DISTRIBUTION WIDTH 14.7 % (11.5-14.5)
[2018-03-01 09:11] LABS: WHITE BLOOD COUNT 4.9 10^3/ul (4.8-10.8)
[2018-03-01 09:45] LABS: ALANINE AMINOTRANSFERASE 25 IU/L (13-69); ALBUMIN 3.2 g/dl (3.3-4.9); ALBUMIN/GLOBULIN RATIO 1.06; ALKALINE PHOSPHATASE 60 IU/L (42-121); ANION GAP 16 (8-16); ASPARTATE AMINO TRANSFERASE 19 IU/L (15-46); BLOOD UREA NITROGEN 60 mg/dl (7-20); CALCIUM 6.9 mg/dl (8.4-10.2); CARBON DIOXIDE 29 mmol/L (21-31); CHLORIDE 102 mmol/L (97-110); CREATININE 11.66 mg/dl (0.44-1.00); GLUCOSE 91 mg/dl (70-220); PHOSPHORUS 5.5 mg/dl (2.5-4.9); POTASSIUM 3.9 mmol/L (3.5-5.1); SODIUM 143 mmol/L (135-144); TOTAL PROTEIN 6.2 g/dl (6.1-8.1)
[2018-03-01 21:41] LABS: TRIIODOTHYRONINE 1.14 ng/ml (0.97-1.69)
== END 2018-03-01 18:31 | disposition left against medical advice (07) | DRG 640 ==
LOC: E/R 06:09 → MS3 09:36 → MS4 20:44
PROVIDERS: Pediatrics
PROC: 3E1M39Z Irrigation of Peritoneal Cavity using Dialysate, Percutaneous Approach (ICD-10-PCS; 2018-02-27)
PROC: 30233N1 Transfusion of Nonautologous Red Blood Cells into Peripheral Vein, Percutaneous Approach (ICD-10-PCS; 2018-02-28)
PROC: 3E1M39Z Irrigation of Peritoneal Cavity using Dialysate, Percutaneous Approach (ICD-10-PCS; principal; 2018-03-01)
DX: E87.70 Fluid overload, unspecified (principal); J81.0 Acute pulmonary edema; N18.6 End stage renal disease; I12.0 Hypertensive chronic kidney disease with stage 5 chronic kidney disease or end stage renal disease; I82.503 Chronic embolism and thrombosis of unspecified deep veins of lower extremity, bilateral; I16.0 Hypertensive urgency; D63.8 Anemia in other chronic diseases classified elsewhere; R62.7 Adult failure to thrive; E78.5 Hyperlipidemia, unspecified; E03.9 Hypothyroidism, unspecified; I87.003 Postthrombotic syndrome without complications of bilateral lower extremity; Z79.82 Long term (current) use of aspirin; Z79.02 Long term (current) use of antithrombotics/antiplatelets; Z59.0 Homelessness; Z91.15 Patient's noncompliance with renal dialysis; Z91.19 Patient's noncompliance with other medical treatment and regimen; Z99.2 Dependence on renal dialysis
CPT/HCPCS: 36415; 36430; 71045; 80053; 80061; 80307; 83036; 83735; 83880; 84100; 84436; 84439; 84443; 84479; 84480; 84484; 84703; 85025; 86706; 86850; 86900; 86901; 86920; 87340; 90945; 96374; 99285-25

== ENCOUNTER 2018-03-07 23:50 | Inpatient (IN) | payer BC ==
[2018-03-08 04:19] LABS: ADD MAN DIFF? NO
[2018-03-08 04:26] LABS: BASOPHILS % 0.4 % (0.0-2.0); EOSINOPHILS # 0.4 10^3/ul (0.0-0.5); EOSINOPHILS % 9.4 % (0.0-7.0); HEMATOCRIT 27.6 % (37.0-47.0); HEMOGLOBIN 8.8 g/dl (12.0-16.0); LYMPHOCYTES # 0.7 10^3/ul (0.8-2.9); LYMPHOCYTES % 14.8 % (15.0-51.0); MEAN CORPUSCULAR HEMOGLOBIN 30.9 pg (29.0-33.0); MEAN CORPUSCULAR HGB CONC 31.9 g/dl (32.0-37.0); MEAN CORPUSCULAR VOLUME 96.8 fl (82.0-101.0); MEAN PLATELET VOLUME 11.1 fl (7.4-10.4); MONOCYTE # 0.5 10^3/ul (0.3-0.9); MONOCYTES % 9.6 % (0.0-11.0); NEUTROPHIL # 3.1 10^3/ul (1.6-7.5); NEUTROPHILS % 65.6 % (39.0-77.0); PLATELET COUNT 114 10^3/UL (140-415); RED BLOOD COUNT 2.85 10^6/ul (4.20-5.40); RED CELL DISTRIBUTION WIDTH 13.9 % (11.5-14.5)
[2018-03-08 04:26] LABS: WHITE BLOOD COUNT 4.7 10^3/ul (4.8-10.8)
[2018-03-08] MEDS: hydrALAzine 20 MG INJ IV ×2 (04:30→05:23)
[2018-03-08 04:54] LABS: ANION GAP 18 (8-16); BLOOD UREA NITROGEN 76 mg/dl (7-20); CALCIUM 6.3 mg/dl (8.4-10.2); CARBON DIOXIDE 23 mmol/L (21-31); CHLORIDE 109 mmol/L (97-110); GLUCOSE 91 mg/dl (70-220); POTASSIUM 4.7 mmol/L (3.5-5.1); SODIUM 145 mmol/L (135-144)
[2018-03-08 05:01] LABS: CREATININE 15.86 mg/dl (0.44-1.00)
[2018-03-08 05:05] LABS: TROPONIN-I 0.025 ng/ml (0.000-0.120)
[2018-03-08 05:27] LABS: INR 1.05; PROTIME 13.8 Sec (11.9-14.9); PT RATIO 1.1
[2018-03-08 05:28] LABS: PARTIAL THROMBOPLASTIN TIME 35.1 Sec (25.0-35.0)
[2018-03-08 05:32] LABS: PHOSPHORUS 8.9 mg/dl (2.5-4.9)
[2018-03-08 05:32] LABS: MAGNESIUM 1.7 mg/dl (1.7-2.5)
[2018-03-08] MEDS ORDERED: DOCUSATE SODIUM 100 MG CAP PO (06:00)
[2018-03-08] MEDS ORDERED: BISACODYL (EC) 5 MG TAB PO (06:00)
[2018-03-08] MEDS ORDERED: NITROGLYCERIN (SL) 0.4 MG TAB SL (06:00)
[2018-03-08] MEDS ORDERED: NACL 0.9% 3 ML SYG IV (06:00)
[2018-03-08] MEDS ORDERED: hydrALAzine 20 MG INJ IV ×2 (06:00)
[2018-03-08 09:36] LABS: CREATINE KINASE 253 IU/L (23-200)
[2018-03-08 09:47] LABS: CK INDEX 0.2; CK-MB 0.62 ng/ml (0.0-2.4); TROPONIN-I 0.019 ng/ml (0.000-0.120)
[2018-03-08] MEDS: ACETAMINOPHEN 325 MG TAB PO (13:13)
[2018-03-08] MEDS: CITALOPRAM 20 MG TAB PO (15:53)
[2018-03-08] MEDS: METHADONE 10 MG TAB PO ×2 (15:53→21:09)
[2018-03-08 17:37] LABS: CREATINE KINASE 245 IU/L (23-200)
[2018-03-08 17:49] LABS: CK INDEX 0.3; CK-MB 0.66 ng/ml (0.0-2.4); TROPONIN-I 0.016 ng/ml (0.000-0.120)
[2018-03-08] MEDS: GABAPENTIN 100 MG CAP PO (21:06)
[2018-03-08] MEDS: APIXABAN 5 MG TABLET PO (21:07)
[2018-03-08] MEDS: TOPIRAMATE 100 MG TAB PO (21:10)
[2018-03-08] MEDS: DIPHENHYDRAMINE 50 MG CAP PO (22:45)
[2018-03-09 05:49] LABS: WHITE BLOOD COUNT 4.4 10^3/ul (4.8-10.8)
[2018-03-09 05:49] LABS: ADD MAN DIFF? NO; BASOPHILS % 0.7 % (0.0-2.0); EOSINOPHILS # 0.5 10^3/ul (0.0-0.5); HEMATOCRIT 27.9 % (37.0-47.0); HEMOGLOBIN 8.7 g/dl (12.0-16.0); LYMPHOCYTES # 0.8 10^3/ul (0.8-2.9); LYMPHOCYTES % 18.6 % (15.0-51.0); MEAN CORPUSCULAR HEMOGLOBIN 29.9 pg (29.0-33.0); MEAN CORPUSCULAR HGB CONC 31.2 g/dl (32.0-37.0); MEAN CORPUSCULAR VOLUME 95.9 fl (82.0-101.0); MEAN PLATELET VOLUME 11.3 fl (7.4-10.4); MONOCYTE # 0.5 10^3/ul (0.3-0.9); MONOCYTES % 10.2 % (0.0-11.0); NEUTROPHIL # 2.6 10^3/ul (1.6-7.5); PLATELET COUNT 139 10^3/UL (140-415); RED BLOOD COUNT 2.91 10^6/ul (4.20-5.40); RED CELL DISTRIBUTION WIDTH 13.9 % (11.5-14.5)
[2018-03-09] MEDS: METHADONE 10 MG TAB PO ×3 (05:56→22:02)
[2018-03-09 06:09] LABS: ALANINE AMINOTRANSFERASE 27 IU/L (13-69); ALBUMIN 3.1 g/dl (3.3-4.9); ALKALINE PHOSPHATASE 55 IU/L (42-121); ANION GAP 16 (8-16); ASPARTATE AMINO TRANSFERASE 18 IU/L (15-46); BLOOD UREA NITROGEN 71 mg/dl (7-20); CALCIUM 6.4 mg/dl (8.4-10.2); CARBON DIOXIDE 23 mmol/L (21-31); CHLORIDE 108 mmol/L (97-110); GLUCOSE 98 mg/dl (70-220); POTASSIUM 4.3 mmol/L (3.5-5.1); SODIUM 143 mmol/L (135-144); TOTAL PROTEIN 6.2 g/dl (6.1-8.1)
[2018-03-09 06:29] LABS: CREATININE 14.47 mg/dl (0.44-1.00)
[2018-03-09] MEDS: ASPIRIN (EC) 81 MG TAB PO (08:54)
[2018-03-09] MEDS: GABAPENTIN 100 MG CAP PO ×3 (08:54→21:04)
[2018-03-09] MEDS: TOPIRAMATE 100 MG TAB PO ×2 (08:54→21:04)
[2018-03-09] MEDS: CITALOPRAM 20 MG TAB PO (08:54)
[2018-03-09] MEDS: APIXABAN 5 MG TABLET PO ×2 (08:55→21:04)
[2018-03-10] MEDS: AMLODIPINE 5 MG TAB PO ×2 (02:38→08:52)
[2018-03-10] MEDS: APIXABAN 5 MG TABLET PO ×2 (08:51→21:43)
[2018-03-10] MEDS: TOPIRAMATE 100 MG TAB PO ×2 (08:51→21:44)
[2018-03-10] MEDS: CITALOPRAM 20 MG TAB PO (08:51)
[2018-03-10] MEDS: GABAPENTIN 100 MG CAP PO ×3 (08:51→21:44)
[2018-03-10] MEDS: ASPIRIN (EC) 81 MG TAB PO (08:52)
[2018-03-11] MEDS: TOPIRAMATE 100 MG TAB PO (08:29)
[2018-03-11] MEDS: GABAPENTIN 100 MG CAP PO (08:29)
[2018-03-11] MEDS: AMLODIPINE 5 MG TAB PO (08:29)
[2018-03-11] MEDS: ASPIRIN (EC) 81 MG TAB PO (08:30)
[2018-03-11] MEDS: APIXABAN 5 MG TABLET PO (08:30)
[2018-03-11] MEDS: CITALOPRAM 20 MG TAB PO (08:30)
== END 2018-03-11 12:05 | disposition left against medical advice (07) | DRG 640 ==
LOC: E/R 23:50 → MS1 03-09 09:40 → MS3 03-08 05:21
DX: E87.70 Fluid overload, unspecified (principal); N18.6 End stage renal disease; I13.2 Hypertensive heart and chronic kidney disease with heart failure and with stage 5 chronic kidney disease, or end stage renal disease; E11.22 Type 2 diabetes mellitus with diabetic chronic kidney disease; I50.9 Heart failure, unspecified; F32.9 Major depressive disorder, single episode, unspecified; I16.0 Hypertensive urgency; G89.29 Other chronic pain; Z86.718 Personal history of other venous thrombosis and embolism; Z99.2 Dependence on renal dialysis; Z91.15 Patient's noncompliance with renal dialysis
CPT/HCPCS: 36415; 70450; 71045; 80048; 80053; 82550; 82553; 83735; 84100; 84484; 85025; 85610; 85730; 90945; 93005; 93971; 96374; 99285-25

== ENCOUNTER 2018-05-28 00:22 | Inpatient (IN) | payer BC ==
[2018-05-28 02:00] LABS: ADD MAN DIFF? NO
[2018-05-28 02:05] LABS: EOSINOPHILS # 0.4 10^3/ul (0.0-0.5); EOSINOPHILS % 7.8 % (0.0-7.0); HEMATOCRIT 24.9 % (37.0-47.0); HEMOGLOBIN 7.6 g/dl (12.0-16.0); LYMPHOCYTES # 0.7 10^3/ul (0.8-2.9); LYMPHOCYTES % 14.1 % (15.0-51.0); MEAN CORPUSCULAR HEMOGLOBIN 30.3 pg (29.0-33.0); MEAN CORPUSCULAR HGB CONC 30.5 g/dl (32.0-37.0); MEAN CORPUSCULAR VOLUME 99.2 fl (82.0-101.0); MEAN PLATELET VOLUME 10.7 fl (7.4-10.4); MONOCYTE # 0.3 10^3/ul (0.3-0.9); MONOCYTES % 6.4 % (0.0-11.0); NEUTROPHIL # 3.6 10^3/ul (1.6-7.5); NEUTROPHILS % 71.5 % (39.0-77.0); PLATELET COUNT 208 10^3/UL (140-415); RED BLOOD COUNT 2.51 10^6/ul (4.20-5.40); RED CELL DISTRIBUTION WIDTH 15.5 % (11.5-14.5)
[2018-05-28 02:24] LABS: ALANINE AMINOTRANSFERASE 8 IU/L (13-69); ALBUMIN 4.2 g/dl (3.3-4.9); ALBUMIN/GLOBULIN RATIO 1.31; ALKALINE PHOSPHATASE 102 IU/L (42-121); ANION GAP 24 (8-16); ASPARTATE AMINO TRANSFERASE 24 IU/L (15-46); BLOOD UREA NITROGEN 110 mg/dl (7-20); CALCIUM 7.3 mg/dl (8.4-10.2); CARBON DIOXIDE 23 mmol/L (21-31); CHLORIDE 104 mmol/L (97-110); GLUCOSE 84 mg/dl (70-220); POTASSIUM 4.7 mmol/L (3.5-5.1); SODIUM 146 mmol/L (135-144); TOTAL PROTEIN 7.4 g/dl (6.1-8.1)
[2018-05-28 02:31] LABS: CREATININE 14.73 mg/dl (0.44-1.00)
[2018-05-28 02:34] LABS: TROPONIN-I 0.029 ng/ml (0.000-0.120)
[2018-05-28 02:57] LABS: B-TYPE NATRIURETIC PEPTIDE 38600 PG/ML (0-125)
[2018-05-28] MEDS ORDERED: DOCUSATE SODIUM 100 MG CAP PO (03:00)
[2018-05-28] MEDS ORDERED: ONDANSETRON 4 MG TAB PO (03:00)
[2018-05-28] MEDS ORDERED: NITROGLYCERIN (SL) 0.4 MG TAB SL (03:00)
[2018-05-28] MEDS ORDERED: NACL 0.9% 3 ML SYG IV (03:00)
[2018-05-28] MEDS: hydrALAzine 20 MG INJ IV (03:01)
[2018-05-28] MEDS: morphine 2 MG INJ IV (04:39)
[2018-05-28] MEDS: DIPHENHYDRAMINE 25 MG CAP PO (05:34)
[2018-05-28] MEDS: HYDROmorphONE 1 MG/ML SYG IV ×3 (05:34→21:08)
[2018-05-28] MEDS ORDERED: METHADONE 10 MG TAB PO (06:00)
[2018-05-28 06:16] LABS: ADD MAN DIFF? NO
[2018-05-28 06:29] LABS: BASOPHILS % 0.2 % (0.0-2.0); EOSINOPHILS # 0.2 10^3/ul (0.0-0.5); EOSINOPHILS % 3.9 % (0.0-7.0); HEMOGLOBIN 7.5 g/dl (12.0-16.0); LYMPHOCYTES % 16.2 % (15.0-51.0); MEAN CORPUSCULAR HEMOGLOBIN 30.6 pg (29.0-33.0); MEAN CORPUSCULAR HGB CONC 31.3 g/dl (32.0-37.0); MEAN PLATELET VOLUME 10.6 fl (7.4-10.4); MONOCYTE # 0.5 10^3/ul (0.3-0.9); MONOCYTES % 8.7 % (0.0-11.0); NEUTROPHIL # 4.1 10^3/ul (1.6-7.5); NEUTROPHILS % 70.8 % (39.0-77.0); PLATELET COUNT 210 10^3/UL (140-415); RED BLOOD COUNT 2.45 10^6/ul (4.20-5.40); RED CELL DISTRIBUTION WIDTH 15.3 % (11.5-14.5)
[2018-05-28 06:29] LABS: WHITE BLOOD COUNT 5.9 10^3/ul (4.8-10.8)
[2018-05-28 07:02] LABS: ALANINE AMINOTRANSFERASE 16 IU/L (13-69); ALBUMIN 3.5 g/dl (3.3-4.9); ALBUMIN/GLOBULIN RATIO 0.94; ALKALINE PHOSPHATASE 93 IU/L (42-121); ANION GAP 23 (8-16); ASPARTATE AMINO TRANSFERASE 23 IU/L (15-46); BLOOD UREA NITROGEN 111 mg/dl (7-20); CALCIUM 7.2 mg/dl (8.4-10.2); CARBON DIOXIDE 22 mmol/L (21-31); CHLORIDE 102 mmol/L (97-110); GLUCOSE 86 mg/dl (70-220); MAGNESIUM 1.6 mg/dl (1.7-2.5); PHOSPHORUS 6.4 mg/dl (2.5-4.9); POTASSIUM 4.2 mmol/L (3.5-5.1); SODIUM 143 mmol/L (135-144); TOTAL PROTEIN 7.2 g/dl (6.1-8.1)
[2018-05-28 07:11] LABS: CREATININE 14.69 mg/dl (0.44-1.00)
[2018-05-28 08:11] LABS: CREATINE KINASE 133 IU/L (23-200)
[2018-05-28 08:23] LABS: CK INDEX 0.4; CK-MB 0.51 ng/ml (0.0-2.4); TROPONIN-I 0.021 ng/ml (0.000-0.120)
[2018-05-28] MEDS: CITALOPRAM 20 MG TAB PO (08:50)
[2018-05-28] MEDS: ASPIRIN (EC) 81 MG TAB PO (08:50)
[2018-05-28] MEDS: APIXABAN 5 MG TABLET PO ×2 (08:51→21:07)
[2018-05-28] MEDS ORDERED: SODIUM CHLORIDE 0.9% 1L BAG IV (09:30)
[2018-05-28] MEDS ORDERED: ALBUMIN HUMAN 25% 100 ML IV (09:30)
[2018-05-28] MEDS ORDERED: HEPARIN 1000 UNITS/ML 10 ML INJ CATHETER (09:30)
[2018-05-28] MEDS: LIDOCAINE 1% (MPF) 5 ML VIAL INFIL (11:55)
[2018-05-28] MEDS: DIPHENHYDRAMINE 50 MG INJ IV (12:09)
[2018-05-28 12:22] LABS: HEPATITIS B SURFACE ANTIGEN NEGATIVE (NEGATIVE)
[2018-05-28 12:39] LABS: HEPATITIS B SURFACE ANTIBODY POSITIVE (NEGATIVE)
[2018-05-28 14:18] LABS: CREATINE KINASE 120 IU/L (23-200)
[2018-05-28 14:30] LABS: CK INDEX 0.4; CK-MB 0.42 ng/ml (0.0-2.4); TROPONIN-I 0.017 ng/ml (0.000-0.120)
[2018-05-28] MEDS: NIFEdipine (XL) 30 MG TAB PO (16:17)
[2018-05-28] MEDS: EPOETIN 10000 UNITS/1 ML INJ (ESRD) SC (18:34)
[2018-05-29] MEDS: HYDROmorphONE 1 MG/ML SYG IV ×4 (02:19→20:11)
[2018-05-29 06:15] LABS: HAAIG REFLEX REFLEX FILED
[2018-05-29 06:56] LABS: IRON 52 ug/dl (35-150)
[2018-05-29 07:06] LABS: % IRON SATURATION 26 % SAT (22-52); TOTAL IRON BINDING CAPACITY 197 ug/dl (241-421)
[2018-05-29 07:27] LABS: HEPATITIS B SURFACE ANTIGEN NEGATIVE (NEGATIVE)
[2018-05-29 07:45] LABS: HEPATITIS B CORE ANTIBODY NEGATIVE (NEGATIVE); HEPATITIS C VIRAL ANTIBODY NEGATIVE (NEGATIVE); HIV 1&2 ANTIBODY NEGATIVE (NEGATIVE)
[2018-05-29] MEDS: APIXABAN 5 MG TABLET PO ×2 (09:32→21:21)
[2018-05-29] MEDS: ASPIRIN (EC) 81 MG TAB PO (09:32)
[2018-05-29] MEDS: CITALOPRAM 20 MG TAB PO (09:32)
[2018-05-29] MEDS: NIFEdipine (XL) 60 MG TAB PO (09:33)
[2018-05-29] MEDS: DIPHENHYDRAMINE 50 MG INJ IV (15:42)
[2018-05-29] MEDS: LIDOCAINE 1% (MDV) 20 ML INJ INJ (15:43)
[2018-05-30] MEDS: HYDROmorphONE 1 MG/ML SYG IV ×5 (00:53→21:42)
[2018-05-30] MEDS: ASPIRIN (EC) 81 MG TAB PO (09:49)
[2018-05-30] MEDS: NIFEdipine (XL) 60 MG TAB PO (09:49)
[2018-05-30] MEDS: APIXABAN 5 MG TABLET PO ×2 (09:50→21:42)
[2018-05-30] MEDS: CITALOPRAM 20 MG TAB PO (09:50)
[2018-05-30] MEDS: EPOETIN 10000 UNITS/1 ML INJ (ESRD) SC (17:51)
[2018-05-31] MEDS: HYDROmorphONE 1 MG/ML SYG IV ×6 (01:51→21:39)
[2018-05-31] MEDS: DIPHENHYDRAMINE 50 MG INJ IV ×2 (09:27→18:02)
[2018-05-31] MEDS: LIDOCAINE 1% (MPF) 5 ML VIAL INJ (11:04)
[2018-05-31] MEDS: NIFEdipine (XL) 60 MG TAB PO (14:11)
[2018-05-31] MEDS: ASPIRIN (EC) 81 MG TAB PO (14:11)
[2018-05-31] MEDS: BISACODYL (EC) 5 MG TAB PO (14:11)
[2018-05-31] MEDS: CITALOPRAM 20 MG TAB PO (14:11)
[2018-05-31] MEDS: APIXABAN 5 MG TABLET PO ×2 (14:12→21:39)
[2018-06-01] MEDS: DIPHENHYDRAMINE 50 MG INJ IV ×4 (00:21→18:38)
[2018-06-01] MEDS: HYDROmorphONE 1 MG/ML SYG IV ×4 (01:53→15:58)
[2018-06-01] MEDS: NIFEdipine (XL) 60 MG TAB PO (08:52)
[2018-06-01] MEDS: ASPIRIN (EC) 81 MG TAB PO (08:52)
[2018-06-01] MEDS: APIXABAN 5 MG TABLET PO (08:52)
[2018-06-01] MEDS: CITALOPRAM 20 MG TAB PO (08:52)
== END 2018-06-01 19:30 | disposition home or self-care (01) | DRG 640 ==
LOC: E/R 00:22 → PP2 06-01 17:40 → TEL 02:42
PROC: 5A1D70Z Performance of Urinary Filtration, Intermittent, Less than 6 Hours Per Day (ICD-10-PCS; principal; 2018-05-28)
DX: E87.70 Fluid overload, unspecified (principal); N18.6 End stage renal disease; I13.0 Hypertensive heart and chronic kidney disease with heart failure and stage 1 through stage 4 chronic kidney disease, or unspecified chronic kidney disease; R07.9 Chest pain, unspecified; I50.9 Heart failure, unspecified; I16.0 Hypertensive urgency; N18.9 Chronic kidney disease, unspecified; G89.29 Other chronic pain; D63.1 Anemia in chronic kidney disease; E83.42 Hypomagnesemia; E87.5 Hyperkalemia; Z86.718 Personal history of other venous thrombosis and embolism; Z99.2 Dependence on renal dialysis; Z79.899 Other long term (current) drug therapy
CPT/HCPCS: 36415; 71045; 80053; 82550; 82553; 82728; 82962; 83540; 83735; 83880; 84100; 84484; 85025; 86703; 86704; 86706; 86709; 86803; 87081; 87340; 90686; 90935; 93005; 96374; 99285-25